=== PATIENT | male | born 1995 | race Caucasian/White ===

== ENCOUNTER 2017-03-24 07:45 | Observation (INO) | payer SELFPAY ==
[~2017-03-24] VITALS: Ht 167.6 cm; Wt 71.2 kg
[2017-03-24 07:57] VITALS: BP 157/103; PULSE 91; RESP 18; TEMP 97.9; O2SAT 97
[2017-03-24 08:16] VITALS: RESP 20; O2SAT 98
[2017-03-24] MEDS ORDERED: PROM25TA5 PO (08:21)
[2017-03-24] MEDS ORDERED: CINA30 PO (08:21)
[2017-03-24] MEDS ORDERED: [UNRECOGNIZED DRUG - CODE] PO (08:21)
[2017-03-24] MEDS ORDERED: SEVEL800 PO (08:21)
[2017-03-24] MEDS ORDERED: ALPR2TAB3 PO (08:21)
[2017-03-24 08:41] LABS: AUTOMATED NEUTROPHIL # 5.2 TH/MM3 (1.8-7.7); BASOPHIL % 0.4 % (0.0-2.0); EOSINOPHIL # 0.1 TH/MM3 (0-0.4); EOSINOPHIL % 1.8 % (0.0-4.0); HEMATOCRIT 29.1 % (39.0-51.0); LYMPH % 20.6 % (9.0-44.0); LYMPHOCYTE # 1.5 TH/MM3 (1.0-4.8); MEAN CELL VOLUME 92.9 FL (80.0-100.0); MEAN CORPUSCULAR HEMOGLOBIN 30.5 PG (27.0-34.0); MEAN CORPUSCULAR HGB CONC 32.8 % (32.0-36.0); MONO % 7.7 % (0.0-8.0); NEUT % 69.5 % (16.0-70.0); PLATELET COUNT 97 TH/MM3 (150-450); RED BLOOD COUNT 3.13 MIL/MM3 (4.50-5.90); RED CELL DISTRIBUTION WIDTH 14.3 % (11.6-17.2); WHITE BLOOD COUNT 7.4 TH/MM3 (4.0-11.0)
[2017-03-24 08:54] LABS: BICARBONATE 28.1 MEQ/L (21.0-32.0); POTASSIUM 5.7 MEQ/L (3.5-5.1)
--- NOTE | 2017-03-24 08:59 | RADRPT ---
EXAM DATE/TIME: 03/24/2017 08:09 [facility] COMPARISON: No previous studies available for comparison. INDICATIONS : Shortness of breath. MEDICAL HISTORY : Hypertension. SURGICAL HISTORY : None. ENCOUNTER: Initial ACUITY: 2 days PAIN SCORE: 0/10 LOCATION: Bilateral chest FINDINGS: Single AP view of the chest. The lungs are clear. Cardiomediastinal silhouette within normal limits. No evidence of pleural effusion or pneumothorax. CONCLUSION: No acute cardiopulmonary disease identified. Michael Weeks MD on March 24, 2017 at 8:57 Board Certified Radiologist. This report was verified electronically.
--- NOTE | 2017-03-24 09:22 | PD ---
HPI Chief Complaint: Medical Clearance Time Seen by Provider: 08:05 Travel History International Travel<30 days: No Contact w/Intl Traveler<30days: No Traveled to known affect area: No History of Present Illness HPI 22-year-old male with history of Alport syndrome here with complaint of needing dialysis. Patient has history of end-stage renal disease related to his Alport syndrome, dialyzes Sunday. He last dialyzed on Sunday, 4 days ago. Missed dialysis yesterday as he was here vacationing in [place] from [place]. He called his dialysis center, [facility] where he sees a Dr. Christina Nation, and they were going to get him in for hemodialysis today, but patient missed the bus to get home to [place]. Patient complains of generalized bodyaches and is concerned about fluid overload. He does not have any shortness of breath at this time. PFSH Past Medical History Hx Anticoagulant Therapy: No Anxiety: Yes Cardiovascular Problems: Yes (HTN) Chemotherapy: No Cerebrovascular Accident: No Diabetes: No Dialysis: Yes (M/W/F) Diminished Hearing: Yes (bilat swinomish) Genitourinary: Yes (GENETIC KIDNEY DISEASE) Hypertension: Yes Medical other: Yes (HEART STOPPED ON OR TABLE, HAD TO BE RESUCITATED) Respiratory: No Seizures: Yes Past Surgical History Other Surgery: Yes (LT ARM AV FISTULA) Social History Alcohol Use: No Tobacco Use: Yes (2-3 cigarettes per day) Substance Use: No Allergies-Medications (Allergen,Severity, Reaction): Coded Allergies: Klonopin (Verified Allergy, Intermediate, Itching, 03/24/17) Sertraline (Verified Allergy, Intermediate, Itching, 03/24/17) Valium (Verified Allergy, Intermediate, Itching, 03/24/17) Uncoded Allergies: ANTIANXIETY (Allergy, Intermediate, Itching, 03/24/17) ANTIDEPRESSANTS (Allergy, Intermediate, Itching, 03/24/17) Reported Meds & Prescriptions Reported Meds & Active Scripts Active Reported Restoril (Temazepam) 22.5 Mg Cap 22.5 Mg PO HS PRN Phenergan (Promethazine HCl) 25 Mg Tab 25 Mg PO Q6H PRN Sensipar (Cinacalcet) 30 Mg Tab 30 Mg PO DAILY Renvela (Sevelamer Carbonate) 800 Mg Tab 2,400 Mg PO TID Alprazolam 2 Mg Tab 2 Mg PO Q8H PRN Review of Systems Except as stated in HPI: all other systems reviewed are Neg Physical Exam Narrative GENERAL: Well-appearing male in no acute distress SKIN: Focused skin assessment warm/dry. HEAD: Normocephalic. EYES: No scleral icterus. No injection or drainage. ENT: Mucous membranes pink and moist. NECK: Supple CARDIOVASCULAR: Regular rate and rhythm. No murmur appreciated. RESPIRATORY: No accessory muscle use. Decreased in bilateral bases. GASTROINTESTINAL: Abdomen soft, non-tender, nondistended. MUSCULOSKELETAL: No obvious deformities.left upper extremity AV fistula with palpable thrill. No edema. NEUROLOGICAL: Awake and alert. Motor grossly within normal limits. Normal speech. PSYCHIATRIC: Appropriate mood and affect; insight and judgment normal. Data Data Last Documented VS Vital Signs Date Time Temp Pulse Resp B/P Pulse Ox O2 Delivery O2 Flow Rate FiO2 03/24/17 10:38 73 20 166/94 96 Nasal Cannula 2 03/24/17 07:57 97.9 Orders Complete Blood Count With Diff (03/24/17 08:05) Basic Metabolic Panel (Bmp) (03/24/17 08:05) Iv Access Insert/Monitor (03/24/17 08:05) Ecg Monitoring (03/24/17 08:05) Oximetry (03/24/17 08:05) Chest, Single Ap (03/24/17 08:05) Labs Laboratory Tests Test 03/24/17 08:25 White Blood Count 7.4 TH/MM3 Red Blood Count 3.13 MIL/MM3 Hemoglobin 9.6 GM/DL Hematocrit 29.1 % Mean Corpuscular Volume 92.9 FL Mean Corpuscular Hemoglobin 30.5 PG Mean Corpuscular Hemoglobin 32.8 % Concent Red Cell Distribution Width 14.3 % Platelet Count 97 TH/MM3 Mean Platelet Volume 10.3 FL Neutrophils (%) (Auto) 69.5 % Lymphocytes (%) (Auto) 20.6 % Monocytes (%) (Auto) 7.7 % Eosinophils (%) (Auto) 1.8 % Basophils (%) (Auto) 0.4 % Neutrophils # (Auto) 5.2 TH/MM3 Lymphocytes # (Auto) 1.5 TH/MM3 Monocytes # (Auto) 0.6 TH/MM3 Eosinophils # (Auto) 0.1 TH/MM3 Basophils # (Auto) 0.0 TH/MM3 CBC Comment AUTO DIFF Differential Comment AUTO DIFF CONFIRMED Platelet Estimate LOW Platelet Morphology Comment NORMAL Sodium Level 144 MEQ/L Potassium Level 5.7 MEQ/L Chloride Level 101 MEQ/L Carbon Dioxide Level 28.1 MEQ/L Anion Gap 15 MEQ/L Blood Urea Nitrogen 63 MG/DL Creatinine 14.48 MG/DL Estimat Glomerular Filtration 4 ML/MIN Rate Random Glucose 108 MG/DL Calcium Level 8.7 MG/DL [facility] Medical Decision Making Medical Screen Exam Complete: Yes Emergency Medical Condition: Yes Medical Record Reviewed: Yes Differential Diagnosis 22-year-old male with history of Alport syndrome, ESRD on HD Sunday/Sunday/ Sunday, last dialyzed 4 days ago here with complaint of body aches and concern for fluid overload. Differential includes noncompliant/nonadherence to dialysis regimen, volume overload, electrolyte abnormality, uremia, hyperkalemia. Narrative Course Patient placed on monitor, IV established and blood obtained. Chest x-ray obtained that by my read is unremarkable. CBC, BMP notable for hemoglobin 9.6. Potassium 5.7, BUN 63, creatinine 14.48. I suspect this is baseline given his renal dysfunction. I spoke with Dr. Garcia, who is on-call for his cook vegetable Dr. Nation, and an attempt to get him in a chair at his hemodialysis clinic this afternoon. Unfortunately they were unable to do so. I spoke with our cook vegetable, Dr. Lechuga, who will dialyze patient if he is admitted. Patient is agreeable to be admitted Diagnosis Primary Impression: Hyperkalemia Additional Impression: ESRD (end stage renal disease) Admitting Information Admitting Physician Requests: Observation Shila Hope MD March 24, 2017 09:22
[2017-03-24 09:24] LABS: HEMO FLAGS AUTO DIFF
[2017-03-24 09:26] LABS: PLATELET ESTIMATE SMEAR LOW (NORMAL); PLATELET MORPHOLOGY NORMAL (NORMAL); SCAN/DIFF AUTO DIFF CONFIRMED
[2017-03-24 10:38] VITALS: BP 166/94; PULSE 73; RESP 20; O2SAT 96
[2017-03-24] MEDS ORDERED: SODIUM CHLOR 0.9% 1000 ML INJ 1,000 ML IV PRN ×2 (12:14)
[2017-03-24] MEDS ORDERED: HEPARIN SODIUM - IV 10,000 UNITS/10 ML VIAL PRN (12:15)
[2017-03-24] MEDS ORDERED: HEPARIN SODIUM - IV 10,000 UNITS/10 ML VIAL IVF PRN (12:15)
[2017-03-24] MEDS ORDERED: PROMETHAZINE HCL 25 MG TAB PO PRN (12:15)
[2017-03-24] MEDS ORDERED: diphenhydrAMINE HCL 25 MG CAP PO PRN (12:15)
[2017-03-24] MEDS ORDERED: EPOETIN ALFA 10,000 UNITS/ML VIAL IV PRN (12:15)
[2017-03-24] MEDS ORDERED: ALBUMIN HUMAN 25% 25 GM/100 ML BAGP IV PRN (12:15)
[2017-03-24] MEDS ORDERED: cloNIDine HCL 0.1 MG TAB PO PRN (12:15)
[2017-03-24] MEDS ORDERED: TEMAZEPAM 7.5 MG CAP PO PRN (12:15)
[2017-03-24] MEDS ORDERED: GELATIN 12 MM/7 MM FOAM TOP PRN (12:15)
[2017-03-24] MEDS ORDERED: GENTAMICIN SULFATE (DIALYSIS USE ONLY) 20 MG/2 ML VIAL IV PRN (12:15)
[2017-03-24] MEDS ORDERED: MANNITOL 12.5 GM/50 ML VIAL IV PRN (12:15)
[2017-03-24] MEDS ORDERED: ONDANSETRON HCL 4 MG/2 ML VIAL IV PRN (12:15)
[2017-03-24] MEDS ORDERED: NALOXONE HCL 0.4 MG/ML AMP IV PRN (12:15)
[2017-03-24] MEDS ORDERED: SODIUM CHLORIDE 0.9% FLUSH 10 ML FLUSH IV FLUSH PRN ×2 (12:15)
[2017-03-24] MEDS ORDERED: NITROGLYCERIN 0.4 MG SL 25 TABS/BTL SL PRN (12:15)
--- NOTE | 2017-03-24 12:15 | HHI.HP ---
HPI Service Family Medicine Primary Care Physician No Primary Care Physician Admission Diagnosis hyperkalemia, ESRD Diagnoses: International Travel<30 Days: No Contact w/Intl Traveler<30days: No Known Affected Area: No History of Present Illness Kilo Bryan is a pleasant 22 year old man who unfortunately has ESRD due to Alport syndrome who was brought to the ED by his friend with complaints stating he feels as if there is fluid in his lungs. Patient lives in [place] with his step-father and grandfather and receives dialysis MWF at [facility]. His recreation officer is Dr. Nation in [place]. Patient is anuric; he has been receiving dialysis since June of 2014. Kilo states that he last received dialysis this past Sunday but was unable to get dialysis on Sunday as he was here in [facility] on a trip and was unable to get back up to [place]. He states on Sunday he began to feel slightly short of breath and complains of chest pain that he describes as whole chest and worse with inspiration. Pain is nonradiating. He also has a concern of a clot forming in his left arm fistula site and reports he has had four previous clots in this site in the past. (Benito Skaggs MD R1) Review of Systems Constitutional: DENIES: Fever, Change in appetite Cardiovascular: COMPLAINS OF: Chest pain, DENIES: Lower Extremity Edema Gastrointestinal: DENIES: Constipation, Diarrhea, Nausea, Vomiting Integumentary: DENIES: Rash Neurologic: DENIES: Headache, Localized weakness (Benito Skaggs MD R1) Past Family Social History Past Medical History HTN Anxiety PTSD from unspecified issues Past Surgical History Fistula left upper extremity (Benito Skaggs MD R1) Allergies: Coded Allergies: Klonopin (Verified Allergy, Intermediate, Itching, 03/24/17) Sertraline (Verified Allergy, Intermediate, Itching, 03/24/17) Valium (Verified Allergy, Intermediate, Itching, 03/24/17) Uncoded Allergies: ANTIANXIETY (Allergy, Intermediate, Itching, 03/24/17) ANTIDEPRESSANTS (Allergy, Intermediate, Itching, 03/24/17) Family History Patient is unaware of mother and father FH Social History Lives in [place] with step-father and grandfather Plans to move to [place] for work Admits to cigarette smoking 1-2 cigs daily since 16 years of age Denies etoh intake Denies illicit drug use (Benito Skaggs MD R1) Physical Exam Vital Signs Vital Signs Date Time Temp Pulse Resp B/P Pulse Ox O2 Delivery O2 Flow Rate FiO2 03/24/17 10:38 73 20 166/94 96 Nasal Cannula 2 03/24/17 08:16 20 98 Nasal Cannula 2 03/24/17 07:57 97.9 91 18 157/103 97 Physical Exam GENERAL: NAD, resting comfortably in bed NEURO: AOx3. Normal speech. processing associate grossly intact. SKIN: Warm and dry. No rashes or erythema. HEAD: Normocephalic. Atraumatic. EYES: PERRL. EOMI. No scleral icterus. No injection or drainage. ENT: No nasal drainage. Moist mucous membranes. No oral ulcers or lesions. NECK: Supple, trachea midline. No JVD. CARDIOVASCULAR: Regular rate and rhythm without murmurs, rubs, or gallops. Peripheral pulses 2+. Capillary refill < 2 seconds. Thrill auscultated in fistula of left upper extremity. RESPIRATORY: Breath sounds clear to auscultation and equal bilaterally, without wheezes, rales, or rhonchi. No accessory muscle use. GASTROINTESTINAL: Abdomen is soft, moderate tenderness in LUQ, nondistended, normal BS. No organomegaly or masses. No rebound tenderness. No guarding. MUSCULOSKELETAL: No edema, cyanosis, or clubbing. Normal range of motion. BACK: Nontender without obvious deformity. Laboratory Laboratory Tests Test 03/24/17 08:25 White Blood Count 7.4 Red Blood Count 3.13 Hemoglobin 9.6 Hematocrit 29.1 Mean Corpuscular Volume 92.9 Mean Corpuscular Hemoglobin 30.5 Mean Corpuscular Hemoglobin 32.8 Concent Red Cell Distribution Width 14.3 Platelet Count 97 Mean Platelet Volume 10.3 Neutrophils (%) (Auto) 69.5 Lymphocytes (%) (Auto) 20.6 Monocytes (%) (Auto) 7.7 Eosinophils (%) (Auto) 1.8 Basophils (%) (Auto) 0.4 Neutrophils # (Auto) 5.2 Lymphocytes # (Auto) 1.5 Monocytes # (Auto) 0.6 Eosinophils # (Auto) 0.1 Basophils # (Auto) 0.0 CBC Comment AUTO DIFF Differential Comment AUTO DIFF CONFIRMED Platelet Estimate LOW Platelet Morphology Comment NORMAL Sodium Level 144 Potassium Level 5.7 Chloride Level 101 Carbon Dioxide Level 28.1 Anion Gap 15 Blood Urea Nitrogen 63 Creatinine 14.48 Estimat Glomerular Filtration 4 Rate Random Glucose 108 Calcium Level 8.7 (Benito Skaggs MD R1) Result Diagram: 03/24/1782403/24/17824 Assessment and Plan Assessment and Plan 22 year old man with ESRD due to Alport syndrome presents to the ED needing dialysis following a missed dialysis session yesterday 03/23. Nephrology has been consulted for management with ESRD and dialysis. Code Status Full code Discussed Condition With Dr. Kel Mclean (Benito Skaggs MD R1) Attending Attestation Patient seen and examined, discussed with resident team. I agree with assessment and management as documented and discussed with me. Pt seen in dialysis. At the time of my exam/interview, he has had 2.2L removed ( planned for 2.5L per clinical documentation spec) Pt reports that abdominal pain has resolved, SOB and chest pain have also improved. He reports pain and fullness in his arm at site of AV fistula; this is a similar sensation to other blood clots in his fistula in the past. Additional diagnosis: hyperkalemia: Anticipate improvement with dialysis. Secondary to ESRD and missed dialysis session. No peaked T waves on EKG (Jennifer Kennedy MD) Problem List: (1) ESRD (end stage renal disease) Status: Chronic Plan: - Patient has been receiving dialysis since 06/2014 - Receives dialysis MWF - Nephrology consult for dialysis - Continue home sensipar and renvela (2) Arteriovenous fistula for hemodialysis in place, primary Status: Chronic Plan: - Patient had concerns about a possible thrombus formation - Does report a history of thrombi forming in the past multiple times - Fistula with audible thrill on exam - No signs of edema or erythema - Will obtain an US for evaluation of any possible thrombus (3) Abdominal pain Status: Acute Plan: - Patient did seem to have LUQ abdominal pain on palpation - Afebrile, no leukocytosis - Will obtain a lipase and evaluate further if abdominal pain persists following HD or lipase is elevated (4) Nutrition, metabolism, and development symptoms Status: Chronic Plan: Anxiety: continue home alprazolam Nutrition: Renal diet Electrolytes: monitor post dialysis, nephrology consulted Fluids: Not indicated (Benito Skaggs MD R1) Physician Certification 2 Midnight Certification Type: Admission for Inpatient Services Order for Inpatient Services The services are ordered in accordance with Medicare regulations or non- Medicare payer requirements, as applicable. In the case of services not specified as inpatient-only, they are appropriately provided as inpatient services in accordance with the 2-midnight benchmark. Estimated LOS (days): 1 days is the estimated time the patient will need to remain in the hospital, assuming treatment plan goals are met and no additional complications. Post-Hospital Plan: Home (Benito Skaggs MD R1) Problem Qualifiers (1) Abdominal pain: Qualified Code: R10.12 - Left upper quadrant pain Benito Skaggs MD R1 March 24, 2017 12:15 Jennifer Kennedy MD March 24, 2017 20:13
[2017-03-24] MEDS: SEVELAMER CARBONATE 800 MG TAB PO SCH ×2 (13:00→19:02)
[2017-03-24] MEDS: SODIUM CHLORIDE 0.9% FLUSH 10 ML FLUSH IV FLUSH SCH ×2 (13:00→21:00)
[2017-03-24 15:02] LABS: INDIRECT BILIRUBIN 0.2 MG/DL (0.0-0.8); TOTAL BILIRUBIN ADULT 0.3 MG/DL (0.2-1.0)
--- NOTE | 2017-03-24 16:04 | MB ---
cc: GABI WYATT MD DATE OF CONSULTATION: 03/24/2017. REASON FOR CONSULTATION: End-stage renal disease on hemodialysis for management. HISTORY OF PRESENT ILLNESS: This is 22-year-old male who has been on hemodialysis for the last three to four years. He has been getting dialysis. He came to the hospital because he missed his dialysis yesterday. I was called to see the patient for the management of dialysis. The patient has been on dialysis for three to four years. The reason for his renal failure was Alport disease. This disease runs in the family. The patient has been on hemodialysis MWF. He was visiting here. His friend was supposed to go back but he could not make it yesterday and today he was trying to call his dialysis unit and they could not accept him for dialysis for some reason so he came to the emergency room. He had mild shortness of breath and he was found to have slight increase in the potassium. The patient denies any chest pain at present but he had some chest pain at home with deep inspiration. PAST MEDICAL HISTORY: 1. Hypertension. 2. Anxiety. 3. History of post-traumatic stress disorder. 4. End-stage renal disease on hemodialysis. 5. Alport disease with some decreased hearing. PAST SURGICAL HISTORY: Left arm AV fistula surgery. REVIEW OF SYSTEMS: Denies any headache, dizziness or blurring of vision. He does not have any fever. He has mild shortness of breath. He had some chest pain which was retrosternal and increased with inspiration. It is better now. There is no nausea or vomiting. No abdominal pain. No diarrhea. SOCIAL HISTORY The patient has a history of smoking and is trying to cut down and now he is down to one to two cigarettes a day. There is no history of heavy alcoholism. FAMILY HISTORY: Family history is positive for renal disease and Alport syndrome. Two of his brothers have it and his mother also has Alport disease. ALLERGIES: HE IS ALLERGIC TO: 1. VALIUM. 2. KLONOPIN. 3. SERTRALINE. MEDICATIONS: Currently he is on: 1. Sensipar 30 milligrams once a day. 2. Renvela 2.4 grams three times a day. 3. Restoril as needed. 4. Phenergan as needed. PHYSICAL EXAMINATION: GENERAL: On examination, the patient is awake and alert and I saw him while he was on hemodialysis. VITAL SIGNS: His blood pressure was 166/94, temperature 97.9, oxygen saturation on two liters nasal cannula was 96%. HEAD, EYES, EARS, NOSE, THROAT: The pupils are equal and reacting to light. Nonicteric sclerae. Conjunctivae are normal. NECK: The neck is supple. JVD is not elevated. LUNGS: The patient has bilateral ___ air entry with occasional wheezing. HEART: S1 and S2 regular rhythm. ABDOMEN: Abdomen soft and lax. There is no tenderness. Bowel sounds positive. EXTREMITIES: There is no pedal edema. Left arm AV fistula with good bruit. INVESTIGATIONS: WBC count is 7.4, hemoglobin 9.6, platelet count 97,000. Sodium 144, potassium 5.7, chloride 101, bicarb 28.1, BUN 63 and Creatinine is 14.4, glucose 108, calcium 8.7. AST and ALT normal. Total protein is 5.7. Albumin is 3.4. Lipase is 120. IMAGING STUDIES: The patient had a chest x-ray done which showed that he has clear lung brasher. ASSESSMENT AND PLAN: 1. End-stage renal disease. 2. Hyperkalemia. 3. Hypertension. 4. Mild anemia. The patient has been on hemodialysis and he missed his treatment today. He is now on hemodialysis and trying to remove 3 liters. Blood pressure is on the higher side so he should tolerate this fluid removal. The potassium should improve with dialysis. Post dialysis, if he remains stable, possibly tomorrow he can be discharged. The patient has been admitted for 23-hour observation. The patient is planning to move [facility] in the next month or so. He asked me and I told him that he will have to make arrangements for dialysis depending on the place he is going to stay. He told me that he will contact me and let me know about it. Thank you for the consultation and I will follow the patient while he is in the hospital. MD STEVEN Posadas/VIMAL /3:14 PM /3:43 PM JOSE
[2017-03-24] MEDS: SODIUM CHLOR 0.9% 1000 ML INJ 1,000 ML IV PRN ×3 (16:09→23:50)
--- NOTE | 2017-03-24 18:46 | HHI.DCPOC ---
Discharge Care Plan Diagnosis: (1) ESRD (end stage renal disease) Goals to Promote Your Health * To prevent worsening of your condition and complications, follow up with your kidney doctor Dr. Nation Directions to Meet Your Goals Take your medications as prescribed Follow your dietary instruction Follow activity as directed Keep your appointments as scheduled Take your immunizations and boosters as scheduled If your symptoms worsen call your PCP, if no PCP go to Urgent Care Center or Emergency Room Smoking is Dangerous to Your Health. Avoid second hand smoke Call the 24-hour hour crisis hotline for domestic abuse at Benito Skaggs MD R1 March 24, 2017 18:46
[2017-03-24] MEDS: ACETAMINOPHEN 325 MG TAB PO PRN (20:18)
[2017-03-24 20:52] VITALS: BP 142/89; PULSE 81; RESP 18; TEMP 98.7; O2SAT 97
[2017-03-24] MEDS: ALPRAZolam 1 MG TAB PO PRN (20:58)
--- NOTE | 2017-03-24 23:54 | RADRPT ---
EXAM DATE/TIME: 03/24/2017 22:50 [facility] COMPARISON: No previous studies available for comparison. INDICATIONS : Left arm swelling. MEDICAL HISTORY : Bilateral hearing loss. HTN. Genetic kidney disease. Anxiety. SURGICAL HISTORY : Left arm AV fistula. Dialysis. ENCOUNTER: Initial ACUITY: 1 day PAIN SCORE: 5/10 LOCATION: Left arm. FINDINGS: There is spontaneous flow documented in the brachial, basilic, cephalic, axillary, and subclavian vei ns. The vessels are compressible and augmentation response is documented. No filling defects are se en. The flow is phasic with respiration. Direction of flow in the jugular vein is caudal. There is a dialysis AV fistula in the basilic vein to the brachial artery with a maximal dilation of 3 cm x 1 .9 cm. There is a stent in the proximal basilic vein. CONCLUSION: 1. Negative for deep venous thrombosis. AV fistula patent from basilic vein to the distal brachial ar luanne. Heath Strange MD on March 24, 2017 at 23:51 Board Certified Radiologist. This report was verified electronically.
[2017-03-25 04:42] VITALS: BP 161/96; PULSE 79; RESP 18; TEMP 98.7; O2SAT 97
--- NOTE | 2017-03-25 07:56 | HHI.FPPN ---
Subjective Remarks Patient seen and examined this morning. He is concerned about his blood pressure being elevated. Says he used to take medication but that blood pressure "bottomed out" during dialysis and he then "felt like he didn't need it". Now thinks he may need medication again. He denies having low blood pressures over the last year during dialysis. He feels "a lot better" compared to yesterday, but still has a headache. He asks about his fistula and was informed US did not show a blood clot -He denies Shortness of breath, denies trouble breathing. Denies chest pain, denies abdominal pain. -Patient has a friend who could give him a ride back to [place] today. ( Maureen Lambert MD) Objective Vitals Vital Signs Date Time Temp Pulse Resp B/P Pulse Ox O2 Delivery O2 Flow Rate FiO2 03/25/17 04:42 98.7 79 18 161/96 97 03/24/17 23:50 18 03/24/17 20:52 98.7 81 18 142/89 97 03/24/17 14:02 Nasal Cannula 2.00 03/24/17 10:38 73 20 166/94 96 Nasal Cannula 2 03/24/17 08:16 20 98 Nasal Cannula 2 03/24/17 07:57 97.9 91 18 157/103 97 I/O 03/24/17 03/24/17 03/24/17 03/25/17 03/25/17 03/25/17 07:00 15:00 23:00 07:00 15:00 23:00 Output Total 2500 ml Balance -2500 ml Output Hemodialysis 2500 ml (Maureen Lambert MD) Result Diagram: 03/24/1725 03/24/1725 Imaging Last Impressions Chest X-Ray 03/24/17804 Signed Impressions: Service Date/Time: Friday, March 24, 2017 08:09 - CONCLUSION: No acute cardiopulmonary disease identified. Michael Weeks MD Upper Extremity Ultrasound 03/24/17 0000 Signed Impressions: Service Date/Time: Friday, March 24, 2017 22:50 - CONCLUSION: 1. Negative for deep venous thrombosis. AV fistula patent from basilic vein to the distal brachial artery. Heath Strange MD Objective Remarks GENERAL: NAD, resting comfortably in bed. SKIN: Warm and dry. No rashes or erythema. HEAD: Normocephalic. Atraumatic. EYES: PERRL. EOMI. No scleral icterus. No injection or drainage. ENT: No nasal drainage. Moist mucous membranes. No oral ulcers or lesions. NECK: Supple, trachea midline. No JVD. CARDIOVASCULAR: Regular rate and rhythm without murmurs, rubs, or gallops. RESPIRATORY: Breath sounds clear to auscultation and equal bilaterally, without wheezes, rales, or rhonchi. No accessory muscle use. GASTROINTESTINAL: Abdomen is soft, moderate tenderness in epigastric region, nondistended, normal BS. No organomegaly or masses. No rebound tenderness. No guarding. MUSCULOSKELETAL: No edema, cyanosis, or clubbing. BACK: No obvious deformity NEURO: Awake, alert. Normal speech. 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 Nephrology was consulted for management with ESRD and dialysis. Patient is now s/p dialysis on 03/24, now clinically much improvement. Discharge Planning Discharge home today Dialysis as outpatient tomorrow, BMP ordered for tomorrow SDW Dr. Kennedy, Dr. Kel Jordan, Dr. Aldana, Pamela Mclean, MS4 (Maureen Lambert MD) Attending Attestation Patient seen, examined, and discussed with resident team. I agree with assessment and management as documented and discussed with me. Pt reports headache and concern over elevated blood pressures. He has a h/o HTN. Start amlodipine 5mg daily. Discharge home today. (Jennifer Kennedy MD) Problem List: (1) ESRD (end stage renal disease) Status: Chronic Plan: Patient has been receiving dialysis since 06/2014. Receives dialysis MWF - Nephrology consulted, had dialysis yesterday as inpatient with improvement. Creatinine 14.48->10.56. - K+ still elevated (5.7->5.6). Kaylexalate given 30g x1 today by nephrology. Per Nephrology, okay for discharge, Need to decrease K in the diet. - Will be getting Dialysis as outpatient tomorrow. - BMP tomorrow as outpt - Continue home sensipar and renvela (2) Arteriovenous fistula for hemodialysis in place, primary Status: Chronic Plan: - US negative for thrombus. No signs of edema or erythema - Fistula with audible thrill on exam (3) Abdominal pain Status: Acute Plan: - Yesterday LUQ abdominal pain on palpation, today epigastric pain - Afebrile, no leukocytosis - Lipase normal (4) Hypertension Status: Chronic Plan: BPs elevated during entire hospital stay ranging 142/89 to 166/94. No low BPs reported after dialysis -Start amlodipine 5mg daily, continue on discharge (5) Nutrition, metabolism, and development symptoms Status: Chronic Plan: Anxiety: continue home alprazolam Nutrition: Renal diet Electrolytes: K+ still elevated as above, given Kaylexalate by Nephrology this am. BMP for tomorrow ordered as outpt Fluids: Not indicated (Maureen Lambert MD) Problem Qualifiers (1) Abdominal pain: Qualified Code: R10.12 - Left upper quadrant pain (2) Hypertension: Qualified Code: I10 - Essential hypertension Maureen Lambert MD March 25, 2017 07:56 Jennifer Kennedy MD March 25, 2017 20:27
[2017-03-25] MEDS ORDERED: AMLO5TAB2 PO (08:02)
[2017-03-25 08:08] VITALS: BP 135/94; PULSE 82; RESP 17; TEMP 98.2; O2SAT 96
[2017-03-25] MEDS: SODIUM CHLORIDE 0.9% FLUSH 10 ML FLUSH IV FLUSH SCH (08:37)
[2017-03-25] MEDS: ACETAMINOPHEN 325 MG TAB PO PRN (08:37)
[2017-03-25] MEDS: SEVELAMER CARBONATE 800 MG TAB PO SCH (08:37)
[2017-03-25] MEDS ORDERED: CINACALCET HYDROCHLORIDE 30 MG TAB PO SCH (09:00)
[2017-03-25] MEDS ORDERED: amLODIPine BESYLATE 5 MG TAB PO ONE (09:00)
[2017-03-25 10:13] LABS: BICARBONATE 31.5 MEQ/L (21.0-32.0); POTASSIUM 5.6 MEQ/L (3.5-5.1)
[2017-03-25] MEDS ORDERED: SODIUM POLYSTYRENE SULFONATE SUSP 15 GM/60 ML CUP PO ONE (10:45)
--- NOTE | 2017-03-25 10:51 | HHI.NPPN ---
Subjective General Problems: Hypertension Renal Failure: End Stage Renal Disease History of Present Illness 22-year-old male who has been on hemodialysis for the last three to four years. He has been getting dialysis. He came to the hospital because he missed his dialysis yesterday. I was called to see the patient for the management of dialysis. The patient has been on dialysis for three to four years. The reason for his renal failure was Alport disease. Additional Remarks Patient is alert, doing better, no SOB. Objective Data Data 03/24/17 03/25/17 19:00 07:00 Output Total 2500 ml Balance -2500 ml Output Hemodialysis 2500 ml Vital Signs Date Time Temp Pulse Resp B/P Pulse Ox O2 Delivery O2 Flow Rate FiO2 03/25/17 08:08 98.2 82 17 135/94 96 03/25/17 04:42 98.7 79 18 161/96 97 03/24/17 23:50 18 03/24/17 20:52 98.7 81 18 142/89 97 03/24/17 14:02 Nasal Cannula 2.00 -: 03/24/17 0825 03/25/17 0910 Physical Exam General Appearance: No Acute Distress, Comfortable Eyes Eye Exam: Pupils Equal Neck Neck Exam: Neck Supple Pulmonary Resp Exam: Clear Bilaterally, Breath Sounds Equal, No Distress, Decreased Bases Cardiology CV Exam: Regular, Normal Sinus Rhythm Gastrointestinal/Abdomen GI Exam: Soft, Non-Tender, Bowel Sounds Present Extremeties Extremities Exam: Trace Edema Neurologic Neuro Exam: Alert, Awake, Oriented Psychiatric Psych Exam: Appropriate Responses Assessment/Plan Assessment Summary: Hypertension, End Stage Renal Disease Electrolyte Assessment: Hyperkalemia Problem List: (1) Hyperkalemia (2) Hypertension (3) ESRD (end stage renal disease) Plan Patient has HD done yesterday. Tolerated well. Creatinine is better. K is still 5.6, Need to decrease K in the diet. BP is stable, Kayexalate on dose. Possible discharge. To continue HD tomorrow. Problem Qualifiers (1) Hypertension: Qualified Code: I10 - Essential hypertension Bety Lechuga MD March 25, 2017 10:51
[2017-03-25] MEDS: ALPRAZolam 1 MG TAB PO PRN (11:52)
--- NOTE | 2017-03-25 16:46 | EKG ---
Date Performed: 03/24/2017 Time Performed: 12:35:59 PTAGE: 22 years EKG: Sinus rhythm NORMAL ECG NO PREVIOUS TRACING DOCTOR: Amy Lutz Interpretating Date/Time 03/25/2017 16:42:07
== END 2017-03-25 12:47 | disposition home or self-care (01) ==
LOC: NEPC 07:45 → NEDA 11:48 → NEPGCP 17:10
PROVIDERS: ADMIT Family Medicine; ATTEND Family Medicine
DX: I12.0 Hypertensive chronic kidney disease with stage 5 chronic kidney disease or end stage renal disease (principal); N18.6 End stage renal disease; R10.12 Left upper quadrant pain; D64.9 Anemia, unspecified; Q87.81 Alport syndrome; E87.5 Hyperkalemia; F43.10 Post-traumatic stress disorder, unspecified; F41.9 Anxiety disorder, unspecified; F17.210 Nicotine dependence, cigarettes, uncomplicated; Z88.8 Allergy status to other drugs, medicaments and biological substances; Z99.2 Dependence on renal dialysis
CPT/HCPCS: 71010; 80048; 80076; 83690; 85025; 90935; 93005; 93971; 96374; 99284; G0378; J7030; Q4081; G0257

== ENCOUNTER 2017-03-27 20:28 | Observation (INO) | payer MEDICARE ==
[~2017-03-27 20:28] MED LIST: ALPR2TAB3 PO; AMLO5TAB2 PO; CINA30 PO; PROM25TA5 PO; SEVEL800 PO; [UNRECOGNIZED DRUG - CODE] PO
[2017-03-27 20:32] VITALS: BP 148/98; PULSE 98; RESP 16; TEMP 99.2; O2SAT 99
--- NOTE | 2017-03-27 21:26 | PD ---
HPI . Dialysis Chief Complaint: Abnormal Results Time Seen by Provider: 20:48 Travel History International Travel<30 days: No Contact w/Intl Traveler<30days: No Traveled to known affect area: No History of Present Illness HPI Patient presents stating that he needs dialysis. He has kidney failure secondary to Alport Disease and has been on hemodialysis for the last 4 years or so. He has been living in [place]. He was seen here on 03/24 stating that he was on vacation here and missed dialysis. Tonight, he states that he moved here "technically today." He reports that he is homeless. He states that he feels like he has toxins building up in his body. He states that he aches all over, has a poor appetite, is nauseous and has a headache. PFSH Past Medical History Hx Anticoagulant Therapy: No Blood Disorders: No Anxiety: Yes Heart Rhythm Problems: No Cancer: No Cardiovascular Problems: Yes High Cholesterol: No Chemotherapy: No Chest Pain: No Congestive Heart Failure: No Cerebrovascular Accident: No Diabetes: No Dialysis: Yes (M/W/F) Diminished Hearing: Yes (bilat [place]) Endocrine: No Gastrointestinal Disorders: No Genitourinary: Yes Hypertension: Yes Immune Disorder: No Musculoskeletal: No Neurologic: No Psychiatric: No Reproductive: No Respiratory: No Seizures: Yes Past Surgical History Other Surgery: Yes (LT ARM AV FISTULA) Social History Alcohol Use: No Tobacco Use: Yes (2-3 cigarettes per day) Substance Use: No Allergies-Medications (Allergen,Severity, Reaction): Coded Allergies: Klonopin (Verified Allergy, Intermediate, Itching, 03/27/17) Sertraline (Verified Allergy, Intermediate, Itching, 03/27/17) Valium (Verified Allergy, Intermediate, Itching, 03/27/17) Uncoded Allergies: ANTIANXIETY (Allergy, Intermediate, Itching, 03/24/17) ANTIDEPRESSANTS (Allergy, Intermediate, Itching, 03/24/17) Reported Meds & Prescriptions Reported Meds & Active Scripts Active Amlodipine (Amlodipine Besylate) 5 Mg Tab 5 Mg PO DAILY Reported Restoril (Temazepam) 22.5 Mg Cap 22.5 Mg PO HS PRN Phenergan (Promethazine HCl) 25 Mg Tab 25 Mg PO Q6H PRN Sensipar (Cinacalcet) 30 Mg Tab 30 Mg PO DAILY Renvela (Sevelamer Carbonate) 800 Mg Tab 2,400 Mg PO TID Alprazolam 2 Mg Tab 2 Mg PO Q8H PRN Review of Systems Except as stated in HPI: all other systems reviewed are Neg General / Constitutional: No: Fever, Chills HENT: Positive: Headaches Gastrointestinal: Positive: Nausea, Loss of Appetite Musculoskeletal: Positive: Myalgias Physical Exam Narrative Vital Signs Date Time Temp Pulse Resp B/P Pulse Ox O2 Delivery O2 Flow Rate FiO2 03/27/17 21:00 Room Air 03/27/17 20:32 99.2 98 16 148/98 99 Room Air GENERAL: Chronically ill-appearing young man who does not appear to be in any acute distress. SKIN: Warm and dry. Uremic hue. HEAD: Atraumatic. Normocephalic. EYES: Pupils equal and round. Extraocular movements are intact. ENT: No nasal bleeding or discharge. Mucous membranes pink and moist. NECK: Trachea midline. Neck is supple. CARDIOVASCULAR: Regular rate and rhythm. Heart sounds are normal. RESPIRATORY: No accessory muscle use. Lungs sound clear. GASTROINTESTINAL: Abdomen soft, non-tender, nondistended. MUSCULOSKELETAL: No obvious deformities. No edema. NEUROLOGICAL: Awake and alert. No obvious cranial nerve deficits. Motor grossly within normal limits. Normal speech. PSYCHIATRIC: Appropriate mood and affect; insight and judgment normal. Data Data Last Documented VS Vital Signs Date Time Temp Pulse Resp B/P Pulse Ox O2 Delivery O2 Flow Rate FiO2 03/27/17 21:00 Room Air 03/27/17 20:32 99.2 98 16 148/98 99 Orders Chest, Pa & Lat (03/27/17 20:48) Basic Metabolic Panel (Bmp) (03/27/17 20:48) Cathode Maker / Telemetry IRMA.Q8H (03/27/17 20:48) ^ Saline Lock (03/27/17 20:48) Acetaminophen (Tylenol) (03/27/17 21:45) Admit Order (Ed Use Only) (03/27/17 22:16) Complete Blood Count With Diff (03/28/17 06:00) Basic Metabolic Panel (Bmp) (03/28/17 06:00) Place In Observation (03/27/17 22:16) Activity Oob Ad Arlette (03/27/17 22:16) Cathode Maker / Telemetry .CONTINUOUS (03/27/17 22:16) Diet Renal (03/28/17 Breakfast) Scd Bilateral/Knee High IRMA.QSHIFT (03/27/17 22:16) Consult Nephrology (03/27/17 ) Labs Laboratory Tests Test 03/27/17 21:00 Sodium Level 141 MEQ/L Potassium Level 5.5 MEQ/L Chloride Level 97 MEQ/L Carbon Dioxide Level 29.1 MEQ/L Anion Gap 15 MEQ/L Blood Urea Nitrogen 61 MG/DL Creatinine 18.27 MG/DL Estimat Glomerular Filtration 3 ML/MIN Rate Random Glucose 82 MG/DL Calcium Level 8.3 MG/DL MDM Medical Decision Making Medical Screen Exam Complete: Yes Emergency Medical Condition: Yes Medical Record Reviewed: Yes (patient was admitted here on 03/24 and underwent hemodialysis in the hospital. He was hyperkalemic at that time.) Differential Diagnosis Differential diagnosis includes hyperkalemia, fluid overload, uremia Narrative Course BMP Diagram 03/27/17 21:00 BMP Diagram 03/27/17 21:00 CXR>>No acute disease. The chest x-ray was independently viewed by me. The patient needs to be dialyzed but I do not believe that he needs to be dialyzed emergently. He was admitted to the resident service 2 days ago. I will see if they will admit him again tonight for dialysis tomorrow. Diagnosis Primary Impression: ESRD (end stage renal disease) Admitting Information Admitting Physician Requests: Observation Condition: Stable Aysha Sanchez MD March 27, 2017 21:26
[2017-03-27 21:39] LABS: BICARBONATE 29.1 MEQ/L (21.0-32.0); POTASSIUM 5.5 MEQ/L (3.5-5.1)
--- NOTE | 2017-03-27 21:39 | RADRPT ---
EXAM DATE/TIME: 03/27/2017 21:19 [facility] COMPARISON: No previous studies available for comparison. INDICATIONS : Chest pain. MEDICAL HISTORY : Hypertension. Smoker. Dialysis. SURGICAL HISTORY : None. ENCOUNTER: Initial ACUITY: 1 day PAIN SCORE: 6/10 LOCATION: Bilateral chest FINDINGS: PA and lateral views of the chest demonstrate the lungs to be symmetrically aerated without evidence of mass, infiltrate or effusion. The cardiomediastinal contours are unremarkable. Osseous structure s are intact. CONCLUSION: No acute disease. Lavon Sotomayor MD on March 27, 2017 at 21:38 Board Certified Radiologist. This report was verified electronically.
[2017-03-27] MEDS ORDERED: ACETAMINOPHEN 325 MG TAB PO ONE (21:45)
--- NOTE | 2017-03-27 22:20 | HHI.HP ---
HPI Service Family Medicine Primary Care Physician No Primary Care Physician Admission Diagnosis renal failure Diagnoses: Chief Complaint: needs dialysis International Travel<30 Days: No Contact w/Intl Traveler<30days: No Known Affected Area: No History of Present Illness 22 y/o male with Alport syndrome presents to ED for dialysis. He was just admitted and discharged on Sunday03/25/17. Since being discharged, he did not receive dialysis. He states that he feels toxins building up in his body. He endorses body aches over his entire body. Endorses cluster headache. Some nausea. Some shortness of breath. He normally receives dialysis MWF in [place] with Dr. Nation at [facility]. Pt has anuria. He lives in [place] with his step-father, however, was kicked out and states he is basically homeless. He is now living with a friend in [place] and will be living here permanently. Pt was seen by Dr. Lechuga at last admission and received dialysis. However, was scheduled to follow-up in [place] for further dialysis, but was unable to. Review of Systems Constitutional: DENIES: Fever, Chills, Dizziness Ears, nose, mouth, throat: COMPLAINS OF: Hearing loss, DENIES: Running Nose Respiratory: COMPLAINS OF: Shortness of breath, DENIES: Cough Cardiovascular: COMPLAINS OF: Chest pain, DENIES: Palpitations, Syncope, Lower Extremity Edema Gastrointestinal: COMPLAINS OF: Abdominal pain, Nausea, DENIES: Constipation, Diarrhea, Vomiting Musculoskeletal: DENIES: Back pain, Neck pain Integumentary: DENIES: Abnormal pigmentation, Rash Hematologic/lymphatic: DENIES: Bruising, Lymphadenopathy Neurologic: COMPLAINS OF: Headache, DENIES: Localized weakness Psychiatric: DENIES: Anxiety, Confusion Past Family Social History Past Medical History ESRD from Alport Syndrome HTN Anxiety/PTSD Past Surgical History Fistula LUE Reported Medications Reported Meds & Active Scripts Active Amlodipine (Amlodipine Besylate) 5 Mg Tab 5 Mg PO DAILY Reported Restoril (Temazepam) 22.5 Mg Cap 22.5 Mg PO HS PRN Phenergan (Promethazine HCl) 25 Mg Tab 25 Mg PO Q6H PRN Sensipar (Cinacalcet) 30 Mg Tab 30 Mg PO DAILY Renvela (Sevelamer Carbonate) 800 Mg Tab 2,400 Mg PO TID Alprazolam 2 Mg Tab 2 Mg PO Q8H PRN Allergies: Coded Allergies: Klonopin (Verified Allergy, Intermediate, Itching, 03/27/17) Sertraline (Verified Allergy, Intermediate, Itching, 03/27/17) Valium (Verified Allergy, Intermediate, Itching, 03/27/17) Uncoded Allergies: ANTIANXIETY (Allergy, Intermediate, Itching, 03/24/17) ANTIDEPRESSANTS (Allergy, Intermediate, Itching, 03/24/17) Active Ordered Medications Active Medications Acetaminophen (Tylenol) 650 mg ONCE ONCE PO Last administered on 03/27/17t 21: 55; Admin Dose 650 MG; Start 03/27/17 at 21:45; Stop 03/27/17 at 21:46; Status DC Family History Unknown maternal/paternal history Social History Lives in [place] with step-father and grandfather Plans to move to [facility] for work Admits to cigarette smoking 1-2 cigs daily since 16 years of age Denies etoh intake Denies illicit drug use Physical Exam Vital Signs Vital Signs Date Time Temp Pulse Resp B/P Pulse Ox O2 Delivery O2 Flow Rate FiO2 03/27/17 21:00 Room Air 03/27/17 20:32 99.2 98 16 148/98 99 Room Air Physical Exam GENERAL: This is a well-nourished, well-developed patient, NAD SKIN: No rashes, ecchymoses or lesions. Cool and dry. HEAD: Atraumatic. Normocephalic. EYES: Pupils equal round and reactive. Extraocular motions intact. No scleral icterus. No injection or drainage. ENT: Throat without erythema. MMM. NECK: Trachea midline. No JVD or lymphadenopathy. CARDIOVASCULAR: Regular rate and rhythm without murmurs, gallops, or rubs. Pulses intact. Palpable thrill in fistula of LUE RESPIRATORY: Clear to auscultation. Breath sounds equal bilaterally. No wheezes , rales, or rhonchi. GASTROINTESTINAL: Abdomen soft, non-tender, nondistended. No hepato-splenomegaly , or palpable masses. No guarding. MUSCULOSKELETAL: Extremities without clubbing, cyanosis, or edema. No joint tenderness, effusion, or edema noted. No calf tenderness. NEUROLOGICAL: Awake and alert. Motor and sensory grossly within normal limits. Normal speech. Laboratory Laboratory Tests Test 03/27/17 21:00 Sodium Level 141 Potassium Level 5.5 Chloride Level 97 Carbon Dioxide Level 29.1 Anion Gap 15 Blood Urea Nitrogen 61 Creatinine 18.27 Estimat Glomerular Filtration 3 Rate Random Glucose 82 Calcium Level 8.3 Result Diagram: 03/27/172099 Imaging Last Impressions Chest X-Ray 03/27/172047 Signed Impressions: Service Date/Time: Monday, March 27, 2017 21:19 - CONCLUSION: No acute disease. 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 Will admit for nephrology consultation and dialysis. Code Status Full Discussed Condition With Dr. Muse Problem List: (1) ESRD (end stage renal disease) Status: Chronic Plan: Hx of Alport Syndrome. Been on dialysis for 3-4 years. Normally receives dialysis MWF in [place], however is now moving to [place]. Will need outpatient dialysis set up on discharge. Saw Dr. Lechuga last hospitalization. -Consult nephrology, appreciate recs -Will go for dialysis tomorrow -Continue home sensipar and renvela (2) Hypertension Status: Chronic Plan: BP 157/103 on admission. Started on amlodipine last admission -Continue amlodipine 5mg daily -Clonidine PRN (3) Hyperkalemia Status: Acute Plan: K of 5.5 on admission. Level of 5.6 upon discharge two days ago. -EKG to evaluate for hyperkalemic changes -Continue to monitor -Await dialysis (4) Headache Status: Acute Plan: Pt endorses cluster headache. States he gets them off and on, especially associated with not getting dialysis -Administer supplemental oxygen -Tylenol PRN -Phenergan PRN (5) FEN Status: Acute Plan: Fluids: none Electrolytes: Hyperkalemia, monitor s/p dialysis Nutrition: Renal diet DVT ppx: SCDs Problem Qualifiers (1) Hypertension: Qualified Code: I15.1 - Hypertension secondary to other renal disorders (2) Headache: Qualified Code: G44.019 - Episodic cluster headache, not intractable Daniel Rosario MD R1 March 27, 2017 22:20
[2017-03-27 22:45] VITALS: BP 127/85; PULSE 72; RESP 18; O2SAT 99
[2017-03-27] MEDS ORDERED: cloNIDine HCL 0.1 MG TAB PO PRN (22:45)
[2017-03-27] MEDS ORDERED: PROMETHAZINE HCL 25 MG TAB PO PRN (23:15)
[2017-03-27] MEDS ORDERED: TEMAZEPAM 7.5 MG CAP PO PRN (23:30)
[2017-03-27 23:34] VITALS: O2SAT 99
[2017-03-27 23:46] VITALS: BP 125/78; PULSE 74; RESP 18; TEMP 96.2; O2SAT 95
[2017-03-28] VITALS (8 sets, daily range): BP systolic 126–170; BP diastolic 85–99; PULSE 74–93; RESP 18–20; TEMP 97.5–98.7; O2SAT 93–100
[2017-03-28 05:09] LABS: BASOPHIL % 0.7 % (0.0-2.0); EOSINOPHIL # 0.2 TH/MM3 (0-0.4); EOSINOPHIL % 3.1 % (0.0-4.0); HEMATOCRIT 28.2 % (39.0-51.0); HEMO FLAGS DIFF FINAL; LYMPH % 39.1 % (9.0-44.0); LYMPHOCYTE # 2.5 TH/MM3 (1.0-4.8); MEAN CELL VOLUME 92.3 FL (80.0-100.0); MEAN CORPUSCULAR HEMOGLOBIN 30.5 PG (27.0-34.0); MEAN CORPUSCULAR HGB CONC 33.1 % (32.0-36.0); MONO % 9.6 % (0.0-8.0); NEUT % 47.5 % (16.0-70.0); PLATELET COUNT 114 TH/MM3 (150-450); RED BLOOD COUNT 3.06 MIL/MM3 (4.50-5.90); WHITE BLOOD COUNT 6.4 TH/MM3 (4.0-11.0)
[2017-03-28] MEDS: ACETAMINOPHEN 325 MG TAB PO PRN ×3 (05:26→16:16)
[2017-03-28 05:34] LABS: BICARBONATE 26.2 MEQ/L (21.0-32.0); POTASSIUM 5.3 MEQ/L (3.5-5.1)
--- NOTE | 2017-03-28 07:17 | HHI.FPPN ---
Subjective Remarks No acute events overnight. Patient sleeping comfortably in bed this AM. States he and his step-father recently had a verbal dispute and he was kicked out of that house in [place] and he plans to move to [facility]. He has friends in the area and he states some extended family. He reports a headache he describes as cluster headaches, as well as generalized nonradiating dull chest pain and mild SOB. (Benito Skaggs MD R1) Objective Vitals Vital Signs Date Time Temp Pulse Resp B/P Pulse Ox O2 Delivery O2 Flow Rate FiO2 03/28/17 05:17 98.7 81 18 136/88 93 03/27/17 23:46 96.2 74 18 125/78 95 03/27/17 23:34 99 Nasal Cannula 2.00 03/27/17 22:45 72 18 127/85 99 Nasal Cannula 2 03/27/17 21:00 Room Air 03/27/17 20:32 99.2 98 16 148/98 99 Room Air (Benito Skaggs MD R1) Result Diagram: 03/28/17 0440 03/28/17 0440 Objective Remarks GENERAL: NAD, lying comfortably in bed SKIN: No rashes, ecchymoses or lesions. Cool and dry. HEAD: Atraumatic. Normocephalic. EYES: Extraocular motions intact. No scleral icterus. No injection or drainage. ENT: Throat without erythema. MMM. NECK: Trachea midline. No JVD or lymphadenopathy. CARDIOVASCULAR: Regular rate and rhythm without murmurs, gallops, or rubs. Pulses intact. Palpable thrill in fistula of LUE RESPIRATORY: Clear to auscultation. Breath sounds equal bilaterally. No wheezes , rales, or rhonchi. GASTROINTESTINAL: Abdomen soft, non-tender, nondistended. MUSCULOSKELETAL: Extremities without clubbing, cyanosis, or edema. No joint tenderness, effusion, or edema noted. No calf tenderness. NEUROLOGICAL: Awake and alert. Motor and sensory grossly within normal limits. Normal speech. (Benito Skaggs MD R1) A/P Assessment and Plan Patient is a pleasant 22 year old man with ESRD due to Alport syndrome admitted needing dialysis. Nephrology has been consulted. Discharge Planning Anticipate discharge today following dialysis and assistance with outpatient follow up and dialysis (Benito Skaggs MD R1) Attending Attestation Kilo Bryan is a 22yo gentleman recently admitted for hemodialysis after missing his regularly scheduled dialysis in [place]. He is now admitted for same, after being unable to return home to [place] due to family issues. He now plans to remain in [place] and establish dialysis here. He missed his regularly scheduled dialysis on Sunday. For further details, please see resident H&P. This afternoon, he is seen in dialysis. He complains of a headache, which is typically associated with dialysis. He denies any other concerns. ROS: No fevers, chills, SOB, edema, chest pain. + headache. All other systems reviewed are negative. PMH/PSxH/SocHx/FamHx : Per resident H&P. Significant for: ESRD from Alport syndrome, HTN. AV fistula surgery in left arm. Plans to live with a friend locally; had been in [place]. + tobacco use. Patient does not know mother' s or father's history. Patient will need to be established with outpatient dialysis. Appreciate nephrology, case management who will help to arrange this. Additional diagnosis: Anemia of chronic kidney disease: No active bleeding. hemoglobin at baseline. ( Jennifer Kennedy MD) Problem List: (1) ESRD (end stage renal disease) Status: Chronic Plan: Hx of Alport Syndrome. Been on dialysis for 3-4 years. Normally receives dialysis MWF in [place], however is now moving to [place]. Will need outpatient dialysis set up on discharge. Saw Dr. Lechuga last hospitalization. - Consult nephrology, appreciate recs - Will go for dialysis today - Continue home sensipar and renvela (2) Hypertension Status: Chronic Plan: - Continue amlodipine 5 mg po daily - Clonidine PRN - Monitor vitals q4h (3) Hyperkalemia Status: Acute Plan: K of 5.5 on admission. Level of 5.6 upon discharge two days ago. - EKG in sinus rhythm, no peaked T waves, no ST changes - Continue to monitor electrolytes - For HD today (4) Headache Status: Acute Plan: Pt endorses cluster headache. States he gets them off and on, especially associated with not getting dialysis - Administer supplemental oxygen - Tylenol PRN - Phenergan PRN (5) FEN Status: Acute Plan: Fluids: not indicated Electrolytes: Hyperkalemia, monitor s/p dialysis Nutrition: Renal diet DVT ppx: SCDs (Benito Skaggs MD R1) Problem Qualifiers (1) Hypertension: Qualified Code: I15.1 - Hypertension secondary to other renal disorders (2) Headache: Qualified Code: G44.019 - Episodic cluster headache, not intractable Benito Skaggs MD R1 March 28, 2017 07:17 Jennifer Kennedy MD March 28, 2017 20:49
[2017-03-28] MEDS: CINACALCET HYDROCHLORIDE 30 MG TAB PO SCH (09:11)
[2017-03-28] MEDS: amLODIPine BESYLATE 5 MG TAB PO SCH (09:12)
[2017-03-28] MEDS: SEVELAMER CARBONATE 800 MG TAB PO SCH ×3 (09:12→17:20)
[2017-03-28] MEDS ORDERED: SODIUM CHLOR 0.9% 1000 ML INJ 1,000 ML IV PRN ×2 (11:03)
[2017-03-28] MEDS: ALPRAZolam 1 MG TAB PO PRN (11:14)
[2017-03-28] MEDS ORDERED: GENTAMICIN SULFATE (DIALYSIS USE ONLY) 20 MG/2 ML VIAL IV PRN (11:15)
[2017-03-28] MEDS ORDERED: MANNITOL 12.5 GM/50 ML VIAL IV PRN (11:15)
[2017-03-28] MEDS ORDERED: HEPARIN SODIUM - IV 10,000 UNITS/10 ML VIAL PRN (11:15)
[2017-03-28] MEDS ORDERED: NITROGLYCERIN 0.4 MG SL 25 TABS/BTL SL PRN (11:15)
[2017-03-28] MEDS ORDERED: ACETAMINOPHEN 325 MG TAB PO PRN (11:15)
[2017-03-28] MEDS ORDERED: ALBUMIN HUMAN 25% 25 GM/100 ML BAGP IV PRN (11:15)
[2017-03-28] MEDS ORDERED: HEPARIN SODIUM - IV 10,000 UNITS/10 ML VIAL IVF PRN (11:15)
[2017-03-28] MEDS ORDERED: SODIUM CHLORIDE 0.9% FLUSH 10 ML FLUSH IV FLUSH PRN (11:15)
[2017-03-28] MEDS ORDERED: cloNIDine HCL 0.1 MG TAB PO PRN (11:15)
[2017-03-28] MEDS ORDERED: diphenhydrAMINE HCL 25 MG CAP PO PRN (11:15)
[2017-03-28] MEDS ORDERED: ONDANSETRON HCL 4 MG/2 ML VIAL IV PRN (11:15)
--- NOTE | 2017-03-28 11:29 | MB ---
cc: GABI WYATT MD DATE OF CONSULTATION 03/28/2017 REASON FOR CONSULTATION End-stage renal disease on hemodialysis for management. HISTORY OF PRESENT ILLNESS This is a 22-year-old male with past medical history of hypertension, Alport's syndrome, end-stage renal disease on hemodialysis three times per week, history of post-traumatic stress disorder, anxiety disorder, who came to the hospital because he has no place for dialysis. I was called to see the patient for the management of dialysis. The patient has been on hemodialysis Sunday, Sunday and Sunday. He used to live in [place], now he moved to this area and according to him right now, he has no place to stay except he is staying with one of his friends and he wants some outpatient dialysis management because he is not going back to [place]. It seems like talking to him, the patient has a history of noncompliance with his dialysis treatment and according to him he has been missing some treatment for one or another reason. I discussed with him and told him that he should not miss any treatment currently. He has mild shortness of breath. He does not have any chest pain. No nausea or vomiting. PAST MEDICAL HISTORY 1. Hypertension 2. End-stage renal disease on hemodialysis 3. Alport's syndrome 4. Anxiety 5. Post-traumatic stress disorder 6. Anemia PAST SURGICAL HISTORY Left arm AV fistula surgery. REVIEW OF SYSTEMS There is no history of fever. No headache or dizziness. He has generalized weakness, feeling tired and has shortness of breath, manual exertion. No cough. No chest pain. No palpitation. No nausea or vomiting. No abdominal pain. SOCIAL HISTORY The patient is single. He still smokes and is trying to cut down. He is down to two cigarettes a day. No history of heavy alcoholism. FAMILY HISTORY Positive for Alport's syndrome in two of his brothers and also his mother has Alport's syndrome. ALLERGIES She is allergic to ANTIDEPRESSANT, KLONOPIN, SERTRALINE, VALIUM. MEDICATIONS Currently he is on the following medications: 1. Amlodipine 5 mg once a day 2. Sensipar 30 mg daily 3. Renvela 2.4 grams t.i.d. 4. Xanax 2 mg p.r.n. PHYSICAL EXAM On examination, the patient is awake and alert. He is not in acute distress. VITAL SIGNS: His last blood pressure was 135/85, temperature is 98.2, oxygen saturation on two liters nasal cannula is 98%. HEENT Pupils equally reacting to light. Nonicteric sclerae. Conjunctivae pale. NECK: Supple. JVD is not elevated. LUNGS: The patient has bilateral decreased air entry with basilar rales and scattered wheezing. HEART: S1, S2, regular rhythm. ABDOMEN: Soft and lax. There is no tenderness. Bowel sounds positive. EXTREMITIES: He has he mild edema in the legs, left arm has AV fistula and has a good bruit. INVESTIGATIONS WBC count is 6.4 with a hemoglobin 9.3 and platelet count of 114. Sodium is 143, potassium 5.3, chloride 101, bicarb 26.2, BUN 65, creatinine 18.7. IMAGING STUDIES The patient had a chest x-ray done last night which shows the lung brasher clear. ASSESSMENT/PLAN 1. End-stage renal disease on hemodialysis 2. Hypertension 3. Anemia 4. History of Alport Syndrome. 5. Anxiety and post traumatic stress disorder. The patient had the last hemodialysis done when he was admitted here over the weekend on Sunday and then he was discharged on Sunday and today is his regular day for dialysis. I will arrange for his hemodialysis today and give him Epogen for the anemia. His blood pressure is stable. He will need outpatient dialysis arrangement for which case liner has been consulted. He probably has some problem with insurance also which may take some more time so I will follow him while he is in the hospital and he will continue dialysis Sunday, Sunday and Sunday. Thank you for the consultation. I will follow the patient while he is in the hospital. MD STEVEN Posadas/RENETTA /11:03 AM /11:11 AM
[2017-03-28] MEDS: EPOETIN ALFA 10,000 UNITS/ML VIAL IV PRN (13:10)
[2017-03-28] MEDS: GELATIN 12 MM/7 MM FOAM TOP PRN (14:52)
--- NOTE | 2017-03-28 19:33 | EKG ---
Date Performed: 03/27/2017 Time Performed: 23:24:17 PTAGE: 22 years EKG: Sinus rhythm POSSIBLE LEFT ATRIAL ENLARGEMENT BORDERLINE ECG PREVIOUS TRACING : 03/24/2017 12.35 Compared to prior tracing no significant change DOCTOR: Romulo Holland Interpretating Date/Time 03/28/2017 19:31:57
[2017-03-29] VITALS (8 sets, daily range): BP systolic 120–142; BP diastolic 71–96; PULSE 70–88; RESP 16–23; TEMP 97.2–98.8; O2SAT 95–100
[2017-03-29 04:24] LABS: AUTOMATED NEUTROPHIL # 4.7 TH/MM3 (1.8-7.7); BASOPHIL % 0.4 % (0.0-2.0); EOSINOPHIL # 0.2 TH/MM3 (0-0.4); EOSINOPHIL % 2.5 % (0.0-4.0); HEMO FLAGS DIFF FINAL; LYMPH % 27.4 % (9.0-44.0); LYMPHOCYTE # 2.1 TH/MM3 (1.0-4.8); MEAN CELL VOLUME 91.7 FL (80.0-100.0); MEAN CORPUSCULAR HEMOGLOBIN 30.1 PG (27.0-34.0); MEAN CORPUSCULAR HGB CONC 32.8 % (32.0-36.0); MONO % 9.3 % (0.0-8.0); NEUT % 60.4 % (16.0-70.0); PLATELET COUNT 133 TH/MM3 (150-450); RED BLOOD COUNT 3.49 MIL/MM3 (4.50-5.90); RED CELL DISTRIBUTION WIDTH 13.8 % (11.6-17.2); WHITE BLOOD COUNT 7.7 TH/MM3 (4.0-11.0)
[2017-03-29 04:48] LABS: BICARBONATE 31.5 MEQ/L (21.0-32.0); MAGNESIUM 2.3 MG/DL (1.5-2.5); POTASSIUM 5.1 MEQ/L (3.5-5.1)
[2017-03-29] MEDS: amLODIPine BESYLATE 5 MG TAB PO SCH (08:56)
[2017-03-29] MEDS: CINACALCET HYDROCHLORIDE 30 MG TAB PO SCH (08:56)
[2017-03-29] MEDS: SEVELAMER CARBONATE 800 MG TAB PO SCH ×3 (08:57→18:16)
[2017-03-29] MEDS ORDERED: IMIT50TA PO (10:08)
[2017-03-29] MEDS: ALPRAZolam 1 MG TAB PO PRN (12:09)
--- NOTE | 2017-03-29 12:24 | HHI.FPPN ---
Subjective Remarks No acute events overnight. Afebrile, vitals are stable. Hgb stable at 10.5. Patient is awake this morning, very pleasant. His only complaint is of a headache. He endorses scintillating scotomas associated with his headaches. He states he had received an injection in the past that helped with his headache but cannot recall the name of this. He otherwise has no complaints. Denies CP or SOB. He states he is still planning to stay in the area and live at a house with friends. He would like to establish with a office machinery or equipment installer here and find a dialysis center. (Benito Skaggs MD R1) Objective Vitals Vital Signs Date Time Temp Pulse Resp B/P Pulse Ox O2 Delivery O2 Flow Rate FiO2 03/29/17 11:31 98.7 88 16 142/96 98 03/29/17 07:45 70 03/29/17 07:44 98.8 78 17 128/80 95 03/29/17 04:30 98.2 70 17 123/78 96 03/29/17 00:18 97.2 81 17 140/80 95 03/28/17 20:07 97.5 79 18 133/88 98 03/28/17 17:23 76 138/91 03/28/17 16:19 83 20 170/99 100 03/28/17 15:59 (Benito Skaggs MD R1) Result Diagram: 03/29/17 0353 03/29/17 0353 Objective Remarks GENERAL: NAD, lying comfortably in bed SKIN: No rashes, ecchymoses or lesions. Cool and dry. HEAD: Atraumatic. Normocephalic. EYES: Extraocular motions intact. No scleral icterus. No injection or drainage. ENT: Throat without erythema. MMM. NECK: Trachea midline. No JVD or lymphadenopathy. CARDIOVASCULAR: Regular rate and rhythm without murmurs, gallops, or rubs. Pulses intact. Palpable thrill in fistula of LUE RESPIRATORY: Clear to auscultation. Breath sounds equal bilaterally. No wheezes , rales, or rhonchi. GASTROINTESTINAL: Abdomen soft, non-tender, nondistended. MUSCULOSKELETAL: Extremities without clubbing, cyanosis, or edema. No joint tenderness, effusion, or edema noted. No calf tenderness. NEUROLOGICAL: Awake and alert. Motor and sensory grossly within normal limits. Normal speech. (Benito Skaggs MD R1) A/P Assessment and Plan Patient is a pleasant 22 year old man with ESRD due to Alport syndrome admitted needing dialysis. Nephrology has been consulted. Discharge Planning Stable for discharge today CM assisting patient with establishing with a dialysis center here in the [facility] and with a office machinery or equipment installer (Benito Skaggs MD R1) Attending Attestation Patient seen, examined, and discussed with resident team. I agree with assessment and management as documented and discussed with me. Pt complains of headache - initiate imitrex for suspected migraine. Await case management / nephrology to arrange outpatient dialysis (Jennifer Kennedy MD) Problem List: (1) ESRD (end stage renal disease) Status: Chronic Plan: Hx of Alport Syndrome. Been on dialysis for 3-4 years. Normally receives dialysis MW in [place], however is now moving to [place]. Will need outpatient dialysis set up on discharge. Saw Dr. Lechuga last hospitalization. - Consult nephrology, appreciate recs - Continue home sensipar and renvela (2) Hypertension Status: Chronic Plan: - Continue amlodipine 5 mg po daily - Clonidine PRN - Monitor vitals q4h (3) Hyperkalemia Status: Acute Plan: K of 5.5 on admission. Level of 5.6 upon discharge two days ago. - EKG in sinus rhythm, no peaked T waves, no ST changes - Continue to monitor electrolytes; normalized to 5.1 today s/p HD (4) Headache Status: Acute Plan: Symptoms c/w migraines with aura - Administer supplemental oxygen - Sumatriptan 6 mg subq prn migraines, may repeat x1 dose after 1 hour if migraine still significant; max 2 doses in 24 hours (5) FEN Status: Acute Plan: Fluids: not indicated Electrolytes: continue to monitor Nutrition: Renal diet DVT ppx: SCDs (Benito Skaggs MD R1) Problem Qualifiers (1) Hypertension: Qualified Code: I15.1 - Hypertension secondary to other renal disorders (2) Headache: Qualified Code: G44.019 - Episodic cluster headache, not intractable Benito Skaggs MD R1 March 29, 2017 12:24 Jennifer Kennedy MD March 30, 2017 10:42
[2017-03-29] MEDS: SUMAtriptan INJ 6 MG/0.5 ML VIAL SQ PRN ×2 (12:50→22:32)
--- NOTE | 2017-03-29 17:28 | HHI.NPPN ---
Subjective History of Present Illness 22-year-old male with past medical history of hypertension, Alport's syndrome, end-stage renal disease on hemodialysis three times per week, history of post-traumatic stress disorder, anxiety disorder, who came to the hospital because he has no place for dialysis. I was called to see the patient for the management of dialysis. The patient has been on hemodialysis Sunday, Sunday and Sunday. Additional Remarks Patient is alert, feeling tired, no SOB. Review of Systems General Constitutional: Fatigue Respiratory Lungs: SOB Cardiovascular Cardiac: Edema, ADAMS Objective Data Data Vital Signs Date Time Temp Pulse Resp B/P Pulse Ox O2 Delivery O2 Flow Rate FiO2 03/29/17 15:36 98.7 79 23 120/71 97 03/29/17 11:31 98.7 88 16 142/96 98 03/29/17 07:45 70 03/29/17 07:44 98.8 78 17 128/80 95 03/29/17 04:30 98.2 70 17 123/78 96 03/29/17 00:18 97.2 81 17 140/80 95 03/28/17 20:07 97.5 79 18 133/88 98 03/28/17 17:23 76 138/91 -: 03/29/17 0353 03/29/17 0353 Physical Exam General Appearance: No Acute Distress, Comfortable Eyes Eye Exam: Pupils Equal Throat Throat Exam: Oral Mucosa [place] & Moist Neck Neck Exam: Neck Supple Pulmonary Resp Exam: No Distress, Rhonchi, Decreased Bases, Diminished Breath Sounds Cardiology CV Exam: Regular, Normal Sinus Rhythm Gastrointestinal/Abdomen GI Exam: Soft, Non-Tender, Bowel Sounds Present Extremeties Extremities Exam: Trace Edema Neurologic Neuro Exam: Alert, Awake, Oriented Psychiatric Psych Exam: Appropriate Responses Assessment/Plan Assessment Summary: Hypertension, End Stage Renal Disease Problem List: (1) Hypertension (2) Headache (3) Hyperkalemia (4) ESRD (end stage renal disease) Plan Patient has HD done yesterday. He is now staying in [facility], and want to go for Nocturnal HD. I discussed with the patient and he agreed for me to take care of him at [facility]. Possible D/C tomorrow after HD. Problem Qualifiers (1) Hypertension: Qualified Code: I15.1 - Hypertension secondary to other renal disorders (2) Headache: Qualified Code: G44.019 - Episodic cluster headache, not intractable Bety Lechuga MD March 29, 2017 17:27
[2017-03-30 00:20] VITALS: BP 129/88; PULSE 77; RESP 18; TEMP 97.6; O2SAT 97
[2017-03-30 03:50] VITALS: BP 119/75; PULSE 77; RESP 18; TEMP 98; O2SAT 96
[2017-03-30 07:56] VITALS: BP 129/81; PULSE 80; RESP 16; TEMP 98.1; O2SAT 96
[2017-03-30] MEDS: SEVELAMER CARBONATE 800 MG TAB PO SCH ×3 (09:00→13:33)
[2017-03-30] MEDS: EPOETIN ALFA 10,000 UNITS/ML VIAL IV PRN (10:21)
[2017-03-30] MEDS: GELATIN 12 MM/7 MM FOAM TOP PRN (10:21)
[2017-03-30] MEDS: SODIUM CHLOR 0.9% 1000 ML INJ 1,000 ML IV PRN ×2 (10:21→12:39)
--- NOTE | 2017-03-30 10:36 | HHI.FPPN ---
Subjective Remarks The patient is getting dialysis this morning. He is doing fine. He is having intermittent headaches consistent with previous history of migraines. Sumatriptan and has helped. He would like to be discharged later today if possible. Denies chest pain, nausea, vomiting, shortness of breath. (Magen Jordan MD R2) Objective Vitals Vital Signs Date Time Temp Pulse Resp B/P Pulse Ox O2 Delivery O2 Flow Rate FiO2 03/30/17 07:56 98.1 80 16 129/81 96 03/30/17 03:50 98.0 77 18 119/75 96 03/30/17 00:25 18 03/30/17 00:20 97.6 77 18 129/88 97 03/29/17 20:48 98 Nasal Cannula 2.00 03/29/17 19:44 97.9 82 21 135/88 100 03/29/17 15:36 98.7 79 23 120/71 97 03/29/17 11:31 98.7 88 16 142/96 98 (Magen Jordan MD R2) Result Diagram: 03/29/17 0353 03/29/17 0353 Objective Remarks GENERAL: NAD, lying comfortably in bed getting dialysis SKIN: No rashes, ecchymoses or lesions. Cool and dry. HEAD: Atraumatic. Normocephalic. EYES: Extraocular motions intact. No scleral icterus. No injection or drainage. ENT: Throat without erythema. MMM. NECK: Trachea midline. No JVD or lymphadenopathy. CARDIOVASCULAR: Regular rate and rhythm without murmurs, gallops, or rubs. Pulses intact. Palpable thrill in fistula of LUE RESPIRATORY: Clear to auscultation. Breath sounds equal bilaterally. No wheezes , rales, or rhonchi. GASTROINTESTINAL: Abdomen soft, non-tender, nondistended. MUSCULOSKELETAL: Extremities without clubbing, cyanosis, or edema. No joint tenderness, effusion, or edema noted. No calf tenderness. NEUROLOGICAL: Awake and alert. Motor and sensory grossly within normal limits. Normal speech. (Magen Jordan MD R2) A/P Assessment and Plan Patient is a pleasant 22 year old man with ESRD due to Alport syndrome admitted needing dialysis. Nephrology has been consulted. Discharge Planning Stable for discharge today CM assisting patient with establishing with a dialysis center here in the [facility] and with a supervisor residential (Magen Jordan MD R2) Attending Attestation Patient seen and examined, discussed with resident team. I agree with assessment and management as documented and discussed with me. Pt seen in dialysis. Await arrangement of outpatient dialysis. (Jennifer Kennedy MD) Problem List: (1) ESRD (end stage renal disease) Status: Chronic Plan: Hx of Alport Syndrome. Been on dialysis for 3-4 years. Normally receives dialysis MWF in [place], however is now moving to [place]. Will need outpatient dialysis set up on discharge. - Consult nephrology, appreciate recs - Continue home sensipar and renvela (2) Hypertension Status: Chronic Plan: - Continue amlodipine 5 mg po daily - Clonidine PRN - Monitor vitals q4h (3) Hyperkalemia Status: Acute Plan: K of 5.5 on admission. Level of 5.6 upon discharge two days ago. - EKG in sinus rhythm, no peaked T waves, no ST changes - Continue to monitor electrolytes; normalized to 5.1 today s/p HD (4) Headache Status: Acute Plan: Symptoms c/w migraines with aura - Administer supplemental oxygen - Sumatriptan 6 mg subq prn migraines, may repeat x1 dose after 1 hour if migraine still significant; max 2 doses in 24 hours (5) FEN Status: Acute Plan: Fluids: not indicated Electrolytes: continue to monitor Nutrition: Renal diet DVT ppx: SCDs (Magen Jordan MD R2) Problem Qualifiers (1) Hypertension: Qualified Code: I15.1 - Hypertension secondary to other renal disorders (2) Headache: Qualified Code: G44.019 - Episodic cluster headache, not intractable Magen Jordan MD R2 March 30, 2017 10:36 Jennifer Kennedy MD March 30, 2017 15:27
--- NOTE | 2017-03-30 11:59 | HHI.DCPOC ---
Discharge Care Plan Diagnosis: (1) ESRD (end stage renal disease) Goals to Promote Your Health * To prevent worsening of your condition and complications * To maintain your health at the optimal level Directions to Meet Your Goals Take your medications as prescribed Follow your dietary instruction Follow activity as directed Keep your appointments as scheduled Take your immunizations and boosters as scheduled If your symptoms worsen call your PCP, if no PCP go to Urgent Care Center or Emergency Room Smoking is Dangerous to Your Health. Avoid second hand smoke Call the 24-hour hour crisis hotline for domestic abuse at Magen Jordan MD R2 March 30, 2017 11:59
[2017-03-30] MEDS: SUMAtriptan INJ 6 MG/0.5 ML VIAL SQ PRN (12:18)
[2017-03-30] MEDS: amLODIPine BESYLATE 5 MG TAB PO SCH (12:19)
[2017-03-30] MEDS: CINACALCET HYDROCHLORIDE 30 MG TAB PO SCH (12:19)
[2017-03-30 12:41] VITALS: BP 150/92; PULSE 82; RESP 18; TEMP 98.2; O2SAT 98
[2017-03-30] MEDS: ALPRAZolam 1 MG TAB PO PRN (12:48)
--- NOTE | 2017-03-30 13:25 | HHI.NPPN ---
Subjective History of Present Illness 22-year-old male with past medical history of hypertension, Alport's syndrome, end-stage renal disease on hemodialysis three times per week, history of post-traumatic stress disorder, anxiety disorder, who came to the hospital because he has no place for dialysis. I was called to see the patient for the management of dialysis. The patient has been on hemodialysis Sunday, Sunday and Sunday. Additional Remarks Patient is alert, feeling tired, no SOB. Review of Systems General Constitutional: Fatigue Respiratory Lungs: SOB Cardiovascular Cardiac: Edema, ADAMS Objective Data Data Vital Signs Date Time Temp Pulse Resp B/P Pulse Ox O2 Delivery O2 Flow Rate FiO2 03/30/17 12:41 98.2 82 18 150/92 98 03/30/17 07:56 98.1 80 16 129/81 96 03/30/17 03:50 98.0 77 18 119/75 96 03/30/17 00:25 18 03/30/17 00:20 97.6 77 18 129/88 97 03/29/17 20:48 98 Nasal Cannula 2.00 03/29/17 19:44 97.9 82 21 135/88 100 03/29/17 15:36 98.7 79 23 120/71 97 -: 03/29/17 0353 03/29/17 0353 Physical Exam General Appearance: No Acute Distress, Comfortable Eyes Eye Exam: Pupils Equal Throat Throat Exam: Oral Mucosa [place] & Moist Neck Neck Exam: Neck Supple Pulmonary Resp Exam: No Distress, Rhonchi, Decreased Bases, Diminished Breath Sounds Cardiology CV Exam: Regular, Normal Sinus Rhythm Gastrointestinal/Abdomen GI Exam: Soft, Non-Tender, Bowel Sounds Present Extremeties Extremities Exam: Trace Edema Neurologic Neuro Exam: Alert, Awake, Oriented Psychiatric Psych Exam: Appropriate Responses Assessment/Plan Assessment Summary: Hypertension, End Stage Renal Disease Problem List: (1) Hypertension (2) Headache (3) Hyperkalemia (4) ESRD (end stage renal disease) Plan Patient has HD done yesterday. He is now staying in [facility], and want to go for Nocturnal HD. I discussed with the patient and he agreed for me to take care of him at [facility]. Possible D/C tomorrow after HD. Problem Qualifiers (1) Hypertension: Qualified Code: I15.1 - Hypertension secondary to other renal disorders (2) Headache: Qualified Code: G44.019 - Episodic cluster headache, not intractable Bety Lechuga MD March 30, 2017 13:25
[2017-03-30 14:27] VITALS: PULSE 71
[2017-03-30 15:28] VITALS: BP 131/80; PULSE 80; RESP 18; TEMP 98.2; O2SAT 97
--- NOTE | 2017-04-01 10:30 | HHI.DS ---
Discharge Summary Admission Date March 27, 2017 at 22:18 Discharge Date: March 30, 2017 Admitting Diagnosis renal failure (1) ESRD (end stage renal disease) Diagnosis: Principal Plan: Hx of Alport Syndrome. Been on dialysis for 3-4 years. Normally receives dialysis MWF in [place], however is now moving to [place]. Will need outpatient dialysis set up on discharge. - Consult nephrology, appreciate recs - Continue home sensipar and renvela (2) Hypertension Diagnosis: Secondary Plan: - Continue amlodipine 5 mg po daily - Clonidine PRN - Monitor vitals q4h (3) Hyperkalemia Diagnosis: Secondary Plan: K of 5.5 on admission. Level of 5.6 upon discharge two days ago. - EKG in sinus rhythm, no peaked T waves, no ST changes - Continue to monitor electrolytes; normalized to 5.1 today s/p HD (4) Headache Diagnosis: Secondary Plan: Symptoms c/w migraines with aura - Administer supplemental oxygen - Sumatriptan 6 mg subq prn migraines, may repeat x1 dose after 1 hour if migraine still significant; max 2 doses in 24 hours (5) FEN Diagnosis: Secondary Plan: Fluids: not indicated Electrolytes: continue to monitor Nutrition: Renal diet DVT ppx: SCDs Consultants Nephrology Procedures Dialysis Brief History 22 y/o male with Alport syndrome presents to ED for dialysis. He was just admitted and discharged on Sunday03/25/17. Since being discharged, he did not receive dialysis. He states that he feels toxins building up in his body. He endorses body aches over his entire body. Endorses cluster headache. Some nausea. Some shortness of breath. He normally receives dialysis MWF in [place] with Dr. Nation at [facility]. Pt has anuria. He lives in [place] with his step-father, however, was kicked out and states he is basically homeless. He is now living with a friend in [place] and will be living here permanently. Pt was seen by Dr. Lechuga at last admission and received dialysis. However, was scheduled to follow-up in [place] for further dialysis, but was unable to. CBC/BMP: 03/29/17 0353 03/29/17 0353 Imaging Last Impressions Chest X-Ray 03/27/172047 Signed Impressions: Service Date/Time: Monday, March 27, 2017 21:19 - CONCLUSION: No acute disease. Lavon Sotomayor MD PE at Discharge GENERAL: NAD, lying comfortably in bed getting dialysis SKIN: No rashes, ecchymoses or lesions. Cool and dry. HEAD: Atraumatic. Normocephalic. EYES: Extraocular motions intact. No scleral icterus. No injection or drainage. ENT: Throat without erythema. MMM. NECK: Trachea midline. No JVD or lymphadenopathy. CARDIOVASCULAR: Regular rate and rhythm without murmurs, gallops, or rubs. Pulses intact. Palpable thrill in fistula of LUE RESPIRATORY: Clear to auscultation. Breath sounds equal bilaterally. No wheezes , rales, or rhonchi. GASTROINTESTINAL: Abdomen soft, non-tender, nondistended. MUSCULOSKELETAL: Extremities without clubbing, cyanosis, or edema. No joint tenderness, effusion, or edema noted. No calf tenderness. NEUROLOGICAL: Awake and alert. Motor and sensory grossly within normal limits. Normal speech. Hospital Course Nephrology was consulted for routine dialysis. Case management was consulted to help patient find a crop quantitative geneticist in the [place] area. The patient will be able to receive dialysis at [facility] dialysis on [facility] Sunday. Additionally, during the patient's course, he developed migraine headaches which responded well to sumatriptan IM. Pt Condition on Discharge: Fair Discharge Disposition: Discharge Home Discharge Instructions DIET: Follow Instructions for: Renal Failure Diet Activities you can perform: Regular-No Restrictions Follow up Referrals: Nephrology - 1 Week PCP Follow-up - 1 Week Continued Medications: Alprazolam (Alprazolam) 2 Mg Tab 2 MG PO Q8H PRN ANXIETY Ref 0 TAB Amlodipine (Amlodipine) 5 Mg Tab 5 MG PO DAILY Blood Pressure Management #30 Ref 0 TAB Cinacalcet (Sensipar) 30 Mg Tab 30 MG PO DAILY #30 Ref 0 TAB Promethazine (Phenergan) 25 Mg Tab 25 MG PO Q6H PRN Nausea/Vomiting Ref 0 TAB Sevelamer Carbonate (Renvela) 800 Mg Tab 2400 MG PO TID Control phosphorous levels #90 Ref 0 TAB Sumatriptan (Imitrex) 50 Mg Tab 50 MG PO ONCE If a satisfactory response has not been obtained at 2 hours, a second dose may be administered PRN MIGRAINE HEADACHE Ref 0 TAB Temazepam (Restoril) 22.5 Mg Cap 22.5 MG PO HS PRN INSOMNIA #30 Ref 0 CAP Magen Jordan MD R2 April 01, 2017 10:30
== END 2017-03-30 17:51 | disposition home or self-care (01) ==
LOC: NEPD 20:28 → NEDA 22:18 → NEPFCDU 23:42
PROVIDERS: ADMIT Family Medicine; ATTEND Family Medicine
DX: I12.0 Hypertensive chronic kidney disease with stage 5 chronic kidney disease or end stage renal disease (principal); N18.6 End stage renal disease; Q87.81 Alport syndrome; G43.109 Migraine with aura, not intractable, without status migrainosus; E87.5 Hyperkalemia; D63.1 Anemia in chronic kidney disease; F17.210 Nicotine dependence, cigarettes, uncomplicated; F43.10 Post-traumatic stress disorder, unspecified; Z59.0 Homelessness; Z99.2 Dependence on renal dialysis; Z91.19 Patient's noncompliance with other medical treatment and regimen; H91.93 Unspecified hearing loss, bilateral
CPT/HCPCS: 71020; 80048; 83735; 84100; 85025; 93005; 96374; 99285; G0257; G0378; J3030; J7030; Q4081; 90935

== ENCOUNTER 2017-05-03 20:05 | Emergency (ER) | payer MEDICARE ==
[~2017-05-03] VITALS: Ht 170.2 cm; Wt 65.0 kg
[~2017-05-03 20:05] MED LIST changes: +IMIT50TA PO
[2017-05-03 20:08] VITALS: BP 173/112; PULSE 90; RESP 16; TEMP 98.6; O2SAT 96
[2017-05-03 20:32] VITALS: BP 178/108; PULSE 85; RESP 18; O2SAT 96
[2017-05-03] MEDS ORDERED: NIFEdipine 60 MG SUSTAINED RELEASE TAB PO ONE (20:45)
[2017-05-03 21:14] VITALS: BP 168/106; PULSE 82; RESP 18; O2SAT 97
[2017-05-03] MEDS ORDERED: ONDANSETRON HCL 4 MG/2 ML VIAL IV PUSH ONE (21:15)
[2017-05-03] MEDS ORDERED: HYDROmorphone HCL PF 1 MG/ML VIAL IV PUSH ONE (21:15)
--- NOTE | 2017-05-03 22:06 | RADRPT ---
EXAM DATE/TIME: 05/03/2017 21:57 [facility] COMPARISON: No previous studies available for comparison. INDICATIONS : Cephalgia. RADIATION DOSE: 56.35 CTDIvol (mGy) MEDICAL HISTORY : Hypertension. Seizures. SURGICAL HISTORY : None. ENCOUNTER: Initial ACUITY: 1 day PAIN SCALE: 7/10 LOCATION: cranial TECHNIQUE: Multiple contiguous axial images were obtained of the head. Using automated exposure control and adj ustment of the mA and/or kV according to patient size, radiation dose was kept as low as reasonably a chievable to obtain optimal diagnostic quality images. DICOM format image data is available electro nically for review and comparison. FINDINGS: CEREBRUM: The ventricles are normal for age. No evidence of midline shift, mass lesion, hemorrhage or acute in farction. No extra-axial fluid collections are seen. POSTERIOR FOSSA: The cerebellum and brainstem are intact. The 4th ventricle is midline. The cerebellopontine angle i s unremarkable. EXTRACRANIAL: The visualized portion of the orbits is intact. SKULL: The calvaria is intact. No evidence of skull fracture. CONCLUSION: Unremarkable noncontrast CT. Lavon Sotomayor MD on May 03, 2017 at 22:03 Board Certified Radiologist. This report was verified electronically.
[2017-05-03] MEDS ORDERED: BUTA1CAP PO (22:32)
[2017-05-03] MEDS ORDERED: CYCL1TAB29 PO (22:32)
--- NOTE | 2017-05-03 22:33 | PD ---
HPI Chief Complaint: Hypertension Time Seen by Provider: 20:43 Travel History International Travel<30 days: No Contact w/Intl Traveler<30days: No Traveled to known affect area: No History of Present Illness HPI C/O HEADACHE, GENERALIZED, SQUEEZING TYPE, NONRADIATING, NO ALLEVIATING OR AGGRAVATING FACTORS AND DENIES N/V/PHOTOPHOBIA NOR ANY LATERALIZING WEAKNESS OR DEFICITS AT THIS POINT PFSH Past Medical History Hx Anticoagulant Therapy: No Blood Disorders: No Anxiety: Yes Heart Rhythm Problems: No Cancer: No Cardiovascular Problems: Yes High Cholesterol: No Chemotherapy: No Chest Pain: No Congestive Heart Failure: No Cerebrovascular Accident: No Diabetes: No Patient Takes Glucophage: No Dialysis: Yes (M/W/F) Diminished Hearing: Yes (bilat [place]) Endocrine: No Gastrointestinal Disorders: No Genitourinary: Yes Hypertension: Yes Immune Disorder: No Musculoskeletal: No Neurologic: No Reproductive: No Respiratory: No Immunizations Current: Yes Radiation Therapy: No Seizures: Yes Tetanus Vaccination: > 5 Years Influenza Vaccination: Yes Past Surgical History Other Surgery: Yes (LT ARM AV FISTULA) Social History Alcohol Use: No Tobacco Use: Yes (2-3 cigarettes per day) Substance Use: No Allergies-Medications (Allergen,Severity, Reaction): Coded Allergies: Klonopin (Verified Allergy, Intermediate, Itching, 03/27/17) Sertraline (Verified Allergy, Intermediate, Itching, 03/27/17) Valium (Verified Allergy, Intermediate, Itching, 03/27/17) Uncoded Allergies: ANTIANXIETY (Allergy, Intermediate, Itching, 03/24/17) ANTIDEPRESSANTS (Allergy, Intermediate, Itching, 03/24/17) Reported Meds & Prescriptions Reported Meds & Active Scripts Active Amlodipine (Amlodipine Besylate) 5 Mg Tab 5 Mg PO DAILY Reported Imitrex (Sumatriptan Succinate) 50 Mg Tab 50 Mg PO ONCE PRN If a satisfactory response has not been obtained at 2 hours, a second dose may be administered Restoril (Temazepam) 22.5 Mg Cap 22.5 Mg PO HS PRN Phenergan (Promethazine HCl) 25 Mg Tab 25 Mg PO Q6H PRN Sensipar (Cinacalcet) 30 Mg Tab 30 Mg PO DAILY Renvela (Sevelamer Carbonate) 800 Mg Tab 2,400 Mg PO TID Alprazolam 2 Mg Tab 2 Mg PO Q8H PRN Review of Systems Except as stated in HPI: all other systems reviewed are Neg Neurologic: Positive: Headache Physical Exam Narrative GENERAL: SKIN: Warm and dry. HEAD: Atraumatic. Normocephalic. EYES: Pupils equal and round. No scleral icterus. No injection or drainage. ENT: No nasal bleeding or discharge. Mucous membranes pink and moist. NECK: Trachea midline. No JVD. CARDIOVASCULAR: Regular rate and rhythm. RESPIRATORY: No accessory muscle use. Clear to auscultation. Breath sounds equal bilaterally. GASTROINTESTINAL: Abdomen soft, non-tender, nondistended. Hepatic and splenic margins not palpable. MUSCULOSKELETAL: Extremities without clubbing, cyanosis, or edema. No obvious deformities. LEFT BICEP HAS SHUNT (MWF NEUROLOGICAL: Awake and alert. No obvious cranial nerve deficits. Motor grossly within normal limits. Five out of 5 muscle strength in the arms and legs. Normal speech. PSYCHIATRIC: Appropriate mood and affect; insight and judgment normal. Data Data Last Documented VS Vital Signs Date Time Temp Pulse Resp B/P Pulse Ox O2 Delivery O2 Flow Rate FiO2 05/03/17 21:14 82 18 168/106 97 Room Air 05/03/17 20:[address] Brain W/O Iv Contrast(Rout) (05/03/17 20:43) Nifedipine Sr (Procardia Xl) (05/03/17 20:45) Ondansetron Inj (Zofran Inj) (05/03/17 21:15) Hydromorphone Pf Inj (Dilaudid Pf Inj) (05/03/17 21:15) Electrocardiogram (05/03/17 20:28) MDM Medical Decision Making Medical Screen Exam Complete: Yes Emergency Medical Condition: Yes Medical Record Reviewed: Yes Differential Diagnosis ICH V TENSION TAO V SINUS TAO V UNCONTROLLED HTN Narrative Course CT NEG FOR ICH, PATIENT IS A/OX4, FUENTES AND AT BASELINE....PAIN IS CONTROLLED AND WILL D/C, ADVISED TO KEEP HIS DIALYSIS APPOINTMENT (M/W/F) Diagnosis Primary Impression: TENSION HEADACHE Additional Impression: HYPERTENSIVE Patient Instructions: General Instructions, Tension Headache (ED) Scripts Cyclobenzaprine (Flexeril)10 Mg Tab10 Mg PO TID #10 TAB Prov:Jaren Mock MD 05/03/17 Wtbmujzzgj-Fmhtitglskeyj-Bbicaqyo (Fioricet)50-300-40 Mg Cap1 Cap PO Q4H PRN ( HEADACHE) #20 CAP Ref 0 Prov:Jaren Mock MD 05/03/17 Disposition: 01 DISCHARGE HOME Condition: Stable Jaren Mock MD May 03, 2017 22:32
[2017-05-03] MEDS ORDERED: SUMAtriptan INJ 6 MG/0.5 ML VIAL SQ ONE (22:45)
[2017-05-03 22:52] VITALS: BP 162/102; PULSE 81; RESP 18; O2SAT 96
--- NOTE | 2017-05-04 04:58 | EKG ---
Date Performed: 05/03/2017 Time Performed: 20:28:40 PTAGE: 22 years EKG: BASELINE ARTIFACT PRESENT. Probable Sinus rhythm POSSIBLE LEFT ATRIAL ENLARGEMENT POSSIBLE RIGHT VENTRICULAR CONDUCTION DELAY Nonspecific ST-T wave c hanges ABNORMAL ECG I do not think there is significant change but present electrocardiogram does hav e artifact. PREVIOUS TRACING : 03/27/2017 23.24 DOCTOR: Larry Dorman Interpretating Date/Time 05/04/2017 04:57:50
== END 2017-05-03 23:08 | disposition home or self-care (01) ==
LOC: NEPC 20:05
DX: G44.40 Drug-induced headache, not elsewhere classified, not intractable (principal); I10 Essential (primary) hypertension; F41.9 Anxiety disorder, unspecified; R56.9 Unspecified convulsions; F17.210 Nicotine dependence, cigarettes, uncomplicated; Z79.899 Other long term (current) drug therapy; Z99.2 Dependence on renal dialysis
CPT/HCPCS: 70450; 93005; 96372; 96374; 96375; 99285; J1170; J2405; J3030

== ENCOUNTER 2017-05-06 22:43 | Emergency (ER) | payer MEDICARE, OTHER ==
[~2017-05-06] VITALS: Ht 167.6 cm; Wt 74.0 kg
[~2017-05-06 22:43] MED LIST changes: -AMLO5TAB2 PO; +BUTA1CAP PO; -PROM25TA5 PO
[2017-05-06 22:45] VITALS: BP 172/110; PULSE 98; RESP 14; TEMP 98.9; O2SAT 99
--- NOTE | 2017-05-06 22:57 | PD ---
Physical Exam Date Seen by Provider: May 06, 2017 Time Seen by Provider: 22:54 Data Data Last Documented VS Vital Signs Date Time Temp Pulse Resp B/P Pulse Ox O2 Delivery O2 Flow Rate FiO2 05/06/17 22:45 98.9 98 14 172/110 99 Room Air MDM Supervised Visit with [facility]U: No Narrative Course 22 YO M with complaint of swelling of the lower extremities since yesterday. + SOB and CP. Pt endorses history of kidney disease. Dialysis MWF. Vitals reviewed. Patient seen in triage, awaiting bed placement. María Godwin May 06, 2017 22:57
[2017-05-07] MEDS ORDERED: SODIUM CHLORIDE 0.9% FLUSH 10 ML FLUSH IVF PRN (01:00)
[2017-05-07] MEDS ORDERED: LORazepam 2 MG/ML VIAL IV PUSH ONE (01:30)
[2017-05-07 01:46] VITALS: RESP 18; O2SAT 96
--- NOTE | 2017-05-07 01:47 | RADRPT ---
EXAM DATE/TIME: 05/07/2017 01:05 [facility] COMPARISON: CHEST PA & LAT, March 27, 2017, 21:19. INDICATIONS : Short of breath. MEDICAL HISTORY : Hypertension. Smoker. Dialysis. SURGICAL HISTORY : None. ENCOUNTER: Initial ACUITY: 1 day PAIN SCORE: 0/10 LOCATION: Bilateral chest FINDINGS: A single view of the chest demonstrates cardiomegaly with interstitial edema. No pleural effusions or pneumothorax.. Osseous structures are intact. CONCLUSION: 1. Cardiomegaly with interstitial edema. Elia Love MD on May 07, 2017 at 1:45 Board Certified Radiologist. This report was verified electronically.
[2017-05-07 01:50] LABS: BASOPHIL % 0.3 % (0.0-2.0); EOSINOPHIL # 0.2 TH/MM3 (0-0.4); EOSINOPHIL % 2.9 % (0.0-4.0); HEMATOCRIT 27.6 % (39.0-51.0); HEMO FLAGS DIFF FINAL; LYMPHOCYTE # 1.7 TH/MM3 (1.0-4.8); MEAN CELL VOLUME 93.7 FL (80.0-100.0); MEAN CORPUSCULAR HEMOGLOBIN 31.1 PG (27.0-34.0); MEAN CORPUSCULAR HGB CONC 33.2 % (32.0-36.0); MONO % 5.3 % (0.0-8.0); NEUT % 71.5 % (16.0-70.0); PLATELET COUNT 115 TH/MM3 (150-450); RED BLOOD COUNT 2.95 MIL/MM3 (4.50-5.90); RED CELL DISTRIBUTION WIDTH 16.1 % (11.6-17.2); WHITE BLOOD COUNT 8.4 TH/MM3 (4.0-11.0)
[2017-05-07 02:16] LABS: ALT (GPT) 33 U/L (12-78); ANION GAP 9 MEQ/L (5-15); AST (GOT) 18 U/L (15-37); BICARBONATE 28.1 MEQ/L (21.0-32.0); BLOOD UREA NITROGEN 41 MG/DL (7-18); CHLORIDE 106 MEQ/L (98-107); GLOMERULAR FILTRATION RATE 6 ML/MIN (>89); POTASSIUM 4.4 MEQ/L (3.5-5.1); SODIUM (NA) 143 MEQ/L (136-145)
[2017-05-07 02:19] LABS: ALKALINE PHOSPHATASE 119 U/L (45-117); CREATINE KINASE 112 U/L (39-308); TOTAL BILIRUBIN ADULT 0.4 MG/DL (0.2-1.0)
[2017-05-07 02:35] LABS: CKMB 0.5 NG/ML (0.5-3.6)
--- NOTE | 2017-05-07 04:50 | PD ---
HPI Chief Complaint: Respiratory Distress Time Seen by Provider: 00:50 Travel History International Travel<30 days: No Contact w/Intl Traveler<30days: No Traveled to known affect area: No History of Present Illness HPI 22-year-old male with a history of renal failure secondary to [place] syndrome, presents today with complaints of shortness of breath and chest pressure. The patient reports that he was last dialyzed on Sunday and states they'll he took off a half dialysis. Who presents today with the above symptoms. He denies any fevers, chills. He does report cough with white phlegm. He is concerned that he may need emergent dialysis. Patient also has a history of PTSD and anxiety. He states he feels very anxious as well. PFSH Past Medical History Hx Anticoagulant Therapy: No Blood Disorders: No Anxiety: Yes Heart Rhythm Problems: No Cancer: No Cardiovascular Problems: Yes High Cholesterol: No Chemotherapy: No Chest Pain: No Congestive Heart Failure: No Cerebrovascular Accident: No Diabetes: No Dialysis: Yes (M/W/F) Diminished Hearing: Yes (bil[place]) Endocrine: No Gastrointestinal Disorders: No Genitourinary: Yes Hypertension: Yes Immune Disorder: No Musculoskeletal: No Neurologic: No Reproductive: No Respiratory: No Immunizations Current: Yes Radiation Therapy: No Seizures: Yes Past Surgical History Other Surgery: Yes (LT ARM AV FISTULA) Social History Alcohol Use: No Tobacco Use: Yes (2-3 cigarettes per day) Substance Use: No Allergies-Medications (Allergen,Severity, Reaction): Coded Allergies: Klonopin (Verified Allergy, Intermediate, Itching, 05/06/17) Sertraline (Verified Allergy, Intermediate, Itching, 05/06/17) Valium (Verified Allergy, Intermediate, Itching, 05/06/17) Uncoded Allergies: ANTIANXIETY (Allergy, Intermediate, Itching, 03/24/17) ANTIDEPRESSANTS (Allergy, Intermediate, Itching, 03/24/17) Reported Meds & Prescriptions Reported Meds & Active Scripts Active Fioricet (Qkurvigsso-Wdsyqfqmfogpg-Jorhnswp) 50-300-40 Mg Cap 1 Cap PO Q4H PRN Reported Imitrex (Sumatriptan Succinate) 50 Mg Tab 50 Mg PO ONCE PRN If a satisfactory response has not been obtained at 2 hours, a second dose may be administered Restoril (Temazepam) 22.5 Mg Cap 22.5 Mg PO HS PRN Sensipar (Cinacalcet) 30 Mg Tab 30 Mg PO DAILY Renvela (Sevelamer Carbonate) 800 Mg Tab 2,400 Mg PO TID Alprazolam 2 Mg Tab 2 Mg PO Q8H PRN Review of Systems Except as stated in HPI: all other systems reviewed are Neg General / Constitutional: No: Fever, Chills HENT: No: Headaches, Lightheadedness, Neck Pain Cardiovascular: Positive: Chest Pain or Discomfort (tightness no true pain.), No: Palpitations, Tachycardia Respiratory: Positive: Cough, Shortness of Breath, No: Orthopnea (white phlegm ) Gastrointestinal: No: Nausea, Vomiting, Abdominal Pain Genitourinary: No: Flank Pain Musculoskeletal: No: Weakness, Pain Neurologic: No: Weakness, Dizziness, Headache Psychiatric: Positive: Anxiety Physical Exam Narrative GENERAL: Well-nourished, well-developed patient, who appears very anxious. SKIN: Focused skin assessment warm/dry. HEAD: Normocephalic/atraumatic. EYES: No scleral icterus. No injection or drainage. NECK: Supple, trachea midline. CARDIOVASCULAR: Regular rate and rhythm without murmurs, gallops, or rubs. RESPIRATORY: Breath sounds equal bilaterally. No accessory muscle use. No Rales appreciated. GASTROINTESTINAL: Abdomen soft, non-tender, nondistended. MUSCULOSKELETAL: No cyanosis, or edema. NEUROLOGICAL: Awake and alert. Cranial nerves II through XII intact. Motor grossly within normal limits. Five out of 5 muscle strength in all muscle groups. Normal speech. PSYCHIATRIC: Extremely anxious. No delusional thought process. Data Data Last Documented VS Vital Signs Date Time Temp Pulse Resp B/P Pulse Ox O2 Delivery O2 Flow Rate FiO2 05/07/17 01:46 18 96 Nasal Cannula 2 05/06/17 22:45 98.9 98 172/110 Orders Complete Blood Count With Diff (05/07/17 00:50) Comprehensive Metabolic Panel (05/07/17 00:50) B-Type Natriuretic Peptide (05/07/17 00:50) Ckmb (Isoenzyme) Profile (05/07/17 00:50) Troponin I (05/07/17 00:50) Iv Access Insert/Monitor (05/07/17 00:50) Electrocardiogram (05/07/17 00:50) Ecg Monitoring (05/07/17 00:50) Oximetry (05/07/17 00:50) Oxygen Administration (05/07/17 00:50) Chest, Single Ap (05/07/17 00:50) Sodium Chloride 0.9% Flush (Ns Flush) (05/07/17 01:00) Lorazepam Inj (Ativan Inj) (05/07/17 01:30) CKMB (05/07/17 01:40) CKMB% (05/07/17 01:40) Labs Laboratory Tests Test 05/07/17 01:40 White Blood Count 8.4 TH/MM3 Red Blood Count 2.95 MIL/MM3 Hemoglobin 9.2 GM/DL Hematocrit 27.6 % Mean Corpuscular Volume 93.7 FL Mean Corpuscular Hemoglobin 31.1 PG Mean Corpuscular Hemoglobin 33.2 % Concent Red Cell Distribution Width 16.1 % Platelet Count 115 TH/MM3 Mean Platelet Volume 10.3 FL Neutrophils (%) (Auto) 71.5 % Lymphocytes (%) (Auto) 20.0 % Monocytes (%) (Auto) 5.3 % Eosinophils (%) (Auto) 2.9 % Basophils (%) (Auto) 0.3 % Neutrophils # (Auto) 6.0 TH/MM3 Lymphocytes # (Auto) 1.7 TH/MM3 Monocytes # (Auto) 0.4 TH/MM3 Eosinophils # (Auto) 0.2 TH/MM3 Basophils # (Auto) 0.0 TH/MM3 CBC Comment DIFF FINAL Differential Comment Sodium Level 143 MEQ/L Potassium Level 4.4 MEQ/L Chloride Level 106 MEQ/L Carbon Dioxide Level 28.1 MEQ/L Anion Gap 9 MEQ/L Blood Urea Nitrogen 41 MG/DL Creatinine 10.03 MG/DL Estimat Glomerular Filtration 6 ML/MIN Rate Random Glucose 101 MG/DL Calcium Level 8.1 MG/DL Total Bilirubin 0.4 MG/DL Aspartate Amino Transf 18 U/L (AST/SGOT) Alanine Aminotransferase 33 U/L (ALT/SGPT) Alkaline Phosphatase 119 U/L Total Creatine Kinase 112 U/L Creatine Kinase MB 0.5 NG/ML Troponin I LESS THAN 0.02 NG/ML B-Type Natriuretic Peptide 3162 PG/ML Total Protein 6.1 GM/DL Albumin 3.5 GM/DL MDM Medical Decision Making Medical Screen Exam Complete: Yes Emergency Medical Condition: Yes Differential Diagnosis Fluid overload versus CHF versus metabolic derangement. Narrative Course 22-year-old male with a history of renal failure, dialysis dependent, who presents with complaints of shortness of breath and chest tightness. The patient states he feels extremely anxious. He has a history of anxiety disorder and PTSD. He scheduled to have dialysis today. He states that Sunday he had a half a dialysis secondary to the concern that it was given give him a headache. He is hemodynamically stable. His initial blood pressure was elevated. He has been given Ativan 2 mg I V times one dose. He is much more relaxed. His O2 saturation remains at 100%. Diagnosis Primary Impression: Anxiety Additional Instructions: Go directly to dialysis Disposition: 01 DISCHARGE HOME Condition: Stable Navin Arreola MD May 07, 2017 04:50
[2017-05-07 06:00] VITALS: BP 177/109; PULSE 93; RESP 18; O2SAT 98
--- NOTE | 2017-05-07 14:35 | EKG ---
Date Performed: 05/07/2017 Time Performed: 01:34:56 PTAGE: 22 years EKG: Sinus rhythm Since previous tracing, no significant change noted NORMAL ECG PREVIOUS TRACING : 05/03/2017 20.28 DOCTOR: Arnaldo Rosario Interpretating Date/Time 05/07/2017 14:34:53
== END 2017-05-07 07:01 | disposition home or self-care (01) ==
LOC: NEPE 22:43
DX: F41.9 Anxiety disorder, unspecified (principal)
CPT/HCPCS: 71010; 80053; 82550; 82552; 83880; 84484; 85025; 93005; 96374; 99285; J2060

== ENCOUNTER 2017-05-15 11:34 | Emergency (ER) | payer MEDICARE ==
[~2017-05-15] VITALS: Ht 167.6 cm; Wt 70.0 kg
[2017-05-15 11:45] VITALS: BP 168/112; PULSE 76; RESP 18; RESP 20; TEMP 98.1; O2SAT 97
--- NOTE | 2017-05-15 11:48 | PD ---
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 Patient has history of migraine headaches but states this one has persisted over the usual. Is associated with nausea. Mild photophobia. No recent illnesses, fever, chills. Patient has no other symptoms to report. PFSH Past Medical History Hx Anticoagulant Therapy: No Blood Disorders: No Anxiety: Yes Heart Rhythm Problems: No Cancer: No Cardiovascular Problems: Yes (HTN) High Cholesterol: No Chemotherapy: No Chest Pain: No Congestive Heart Failure: No Cerebrovascular Accident: No Diabetes: No Dialysis: Yes (M/W/F) Diminished Hearing: Yes (bilat [place]) Endocrine: No Gastrointestinal Disorders: No Genitourinary: Yes Hypertension: Yes Immune Disorder: No Musculoskeletal: No Neurologic: No Reproductive: No Respiratory: No Immunizations Current: Yes Radiation Therapy: No Seizures: Yes Past Surgical History Other Surgery: Yes (LT ARM AV FISTULA) Social History Alcohol Use: No Tobacco Use: Yes (2-3 cigarettes per day) Substance Use: No Allergies-Medications (Allergen,Severity, Reaction): Coded Allergies: Klonopin (Verified Allergy, Intermediate, Itching, 05/15/17) Sertraline (Verified Allergy, Intermediate, Itching, 05/15/17) Valium (Verified Allergy, Intermediate, Itching, 05/15/17) Uncoded Allergies: ANTIANXIETY (Allergy, Intermediate, Itching, 03/24/17) ANTIDEPRESSANTS (Allergy, Intermediate, Itching, 03/24/17) Reported Meds & Prescriptions Reported Meds & Active Scripts Active Fioricet (Txmmoiizta-Ewgszvdyyvcdy-Vqnrmxss) 50-300-40 Mg Cap 1 Cap PO Q4H PRN Reported Imitrex (Sumatriptan Succinate) 50 Mg Tab 50 Mg PO ONCE PRN If a satisfactory response has not been obtained at 2 hours, a second dose may be administered Restoril (Temazepam) 22.5 Mg Cap 22.5 Mg PO HS PRN Sensipar (Cinacalcet) 30 Mg Tab 30 Mg PO DAILY Renvela (Sevelamer Carbonate) 800 Mg Tab 2,400 Mg PO TID Alprazolam 2 Mg Tab 2 Mg PO Q8H PRN Review of Systems Except as stated in HPI: all other systems reviewed are Neg Physical Exam Narrative GENERAL: Well-nourished male patient, no acute distress. SKIN: Focused skin assessment warm/dry. HEAD: Atraumatic. Normocephalic. EYES: Pupils equal and round. No scleral icterus. No injection or drainage. ENT: No nasal bleeding or discharge. Mucous membranes pink and moist. NECK: Trachea midline. No JVD. CARDIOVASCULAR: Regular rate and rhythm. No murmur appreciated. RESPIRATORY: No accessory muscle use. Clear to auscultation. Breath sounds equal bilaterally. GASTROINTESTINAL: Abdomen soft, non-tender, nondistended. Hepatic and splenic margins not palpable. MUSCULOSKELETAL: No obvious deformities. No clubbing. No cyanosis. No edema. Left upper extremity AV fistula. Palpable thrill; audible bruit NEUROLOGICAL: Awake and alert. No obvious cranial nerve deficits. Motor grossly within normal limits. Normal speech. PSYCHIATRIC: Appropriate mood and affect; insight and judgment normal. Data Data Last Documented VS Vital Signs Date Time Temp Pulse Resp B/P Pulse Ox O2 Delivery O2 Flow Rate FiO2 05/15/17 15:04 85 16 157/109 98 Room Air 05/15/17 11:45 98.1 Orders Iv Access Insert/Monitor (05/15/17 11:52) Complete Blood Count With Diff (05/15/17 11:52) Basic Metabolic Panel (Bmp) (05/15/17 11:52) Sumatriptan Inj (Imitrex Inj) (05/15/17 12:00) Clonidine (Catapres) (05/15/17 12:00) Ondansetron Inj (Zofran Inj) (05/15/17 12:30) Ct Brain W/O Iv Contrast(Rout) (05/15/17 ) Coag Profile (05/15/17 13:39) Electrocardiogram (05/15/17 14:15) Labs Laboratory Tests Test 05/15/17 05/15/17 12:25 13:57 White Blood Count 5.5 TH/MM3 Red Blood Count 3.24 MIL/MM3 Hemoglobin 9.9 GM/DL Hematocrit 29.8 % Mean Corpuscular Volume 92.1 FL Mean Corpuscular Hemoglobin 30.6 PG Mean Corpuscular Hemoglobin 33.2 % Concent Red Cell Distribution Width 15.8 % Platelet Count 135 TH/MM3 Mean Platelet Volume 9.6 FL Neutrophils (%) (Auto) 73.7 % Lymphocytes (%) (Auto) 15.5 % Monocytes (%) (Auto) 8.0 % Eosinophils (%) (Auto) 2.3 % Basophils (%) (Auto) 0.5 % Neutrophils # (Auto) 4.1 TH/MM3 Lymphocytes # (Auto) 0.9 TH/MM3 Monocytes # (Auto) 0.4 TH/MM3 Eosinophils # (Auto) 0.1 TH/MM3 Basophils # (Auto) 0.0 TH/MM3 CBC Comment DIFF FINAL Differential Comment Sodium Level 141 MEQ/L Potassium Level 4.7 MEQ/L Chloride Level 105 MEQ/L Carbon Dioxide Level 26.3 MEQ/L Anion Gap 10 MEQ/L Blood Urea Nitrogen 20 MG/DL Creatinine 7.71 MG/DL Estimat Glomerular Filtration 9 ML/MIN Rate Random Glucose 89 MG/DL Calcium Level 8.9 MG/DL Prothrombin Time 11.5 SEC Prothromb Time International 1.0 RATIO Ratio Activated Partial 28.7 SEC Thromboplast Time MDM Medical Decision Making Medical Screen Exam Complete: Yes Emergency Medical Condition: Yes Medical Record Reviewed: Yes Differential Diagnosis Migraine with and without aura versus tension headache versus cluster headache versus electrolyte abnormality Narrative Course 22-year-old male presents to emergency department for evaluation. Patient appears without distress. Neuro exam is nonfocal. Laboratory Tests Test 05/15/17 05/15/17 12:25 13:57 White Blood Count 5.5 TH/MM3 Red Blood Count 3.24 MIL/MM3 Hemoglobin 9.9 GM/DL Hematocrit 29.8 % Mean Corpuscular Volume 92.1 FL Mean Corpuscular Hemoglobin 30.6 PG Mean Corpuscular Hemoglobin 33.2 % Concent Red Cell Distribution Width 15.8 % Platelet Count 135 TH/MM3 Mean Platelet Volume 9.6 FL Neutrophils (%) (Auto) 73.7 % Lymphocytes (%) (Auto) 15.5 % Monocytes (%) (Auto) 8.0 % Eosinophils (%) (Auto) 2.3 % Basophils (%) (Auto) 0.5 % Neutrophils # (Auto) 4.1 TH/MM3 Lymphocytes # (Auto) 0.9 TH/MM3 Monocytes # (Auto) 0.4 TH/MM3 Eosinophils # (Auto) 0.1 TH/MM3 Basophils # (Auto) 0.0 TH/MM3 CBC Comment DIFF FINAL Differential Comment Sodium Level 141 MEQ/L Potassium Level 4.7 MEQ/L Chloride Level 105 MEQ/L Carbon Dioxide Level 26.3 MEQ/L Anion Gap 10 MEQ/L Blood Urea Nitrogen 20 MG/DL Creatinine 7.71 MG/DL Estimat Glomerular Filtration 9 ML/MIN Rate Random Glucose 89 MG/DL Calcium Level 8.9 MG/DL Prothrombin Time 11.5 SEC Prothromb Time International 1.0 RATIO Ratio Activated Partial 28.7 SEC Thromboplast Time On reassessment, patient is restful in the bed. He'll be discharged to follow- up with her primary care provider. He agrees to return immediately with any acute worsening symptoms Diagnosis Primary Impression: Migraine Qualified Code: G43.909 - Migraine without status migrainosus, not intractable , unspecified migraine type Additional Impressions: ESRD (end stage renal disease) Hypertension Qualified Code: I15.1 - Hypertension secondary to other renal disorders Referrals: Neurologist Primary Care Physician Patient Instructions: General Instructions, Migraine Headache (ED) Additional Instructions: Continue medication as already prescribed Follow-up to primary care provider Return immediately with any acute worsening of symptoms Med/Other Pt SpecificInfo: No Change to Meds Disposition: 01 DISCHARGE HOME Condition: Stable Sil Mckeon May 15, 2017 11:48
[2017-05-15] MEDS ORDERED: SUMAtriptan INJ 6 MG/0.5 ML VIAL SQ ONE (12:00)
[2017-05-15] MEDS ORDERED: cloNIDine HCL 0.1 MG TAB PO ONE (12:00)
[2017-05-15 12:24] VITALS: BP 157/106; PULSE 78; RESP 16; O2SAT 99
[2017-05-15] MEDS ORDERED: ONDANSETRON HCL 4 MG/2 ML VIAL IV PUSH ONE (12:30)
[2017-05-15 12:42] LABS: AUTOMATED NEUTROPHIL # 4.1 TH/MM3 (1.8-7.7); BASOPHIL % 0.5 % (0.0-2.0); EOSINOPHIL # 0.1 TH/MM3 (0-0.4); EOSINOPHIL % 2.3 % (0.0-4.0); HEMATOCRIT 29.8 % (39.0-51.0); HEMO FLAGS DIFF FINAL; LYMPH % 15.5 % (9.0-44.0); LYMPHOCYTE # 0.9 TH/MM3 (1.0-4.8); MEAN CELL VOLUME 92.1 FL (80.0-100.0); MEAN CORPUSCULAR HEMOGLOBIN 30.6 PG (27.0-34.0); MEAN CORPUSCULAR HGB CONC 33.2 % (32.0-36.0); NEUT % 73.7 % (16.0-70.0); PLATELET COUNT 135 TH/MM3 (150-450); RED BLOOD COUNT 3.24 MIL/MM3 (4.50-5.90); RED CELL DISTRIBUTION WIDTH 15.8 % (11.6-17.2); WHITE BLOOD COUNT 5.5 TH/MM3 (4.0-11.0)
[2017-05-15 12:58] LABS: BICARBONATE 26.3 MEQ/L (21.0-32.0); POTASSIUM 4.7 MEQ/L (3.5-5.1)
--- NOTE | 2017-05-15 13:46 | RADRPT ---
EXAM DATE/TIME: 05/15/2017 13:30 [facility] COMPARISON: No previous studies available for comparison. INDICATIONS : Nausea vomiting, headache starting yesterday,syncopa episode today. RADIATION DOSE: 36.05 CTDIvol (mGy) MEDICAL HISTORY : Seizures. Hypertension. Dialysis SURGICAL HISTORY : left arm av fistula ENCOUNTER: Initial ACUITY: 1 day PAIN SCALE: 10/10 LOCATION: cranial TECHNIQUE: Multiple contiguous axial images were obtained of the head. Using automated exposure control and adj ustment of the mA and/or kV according to patient size, radiation dose was kept as low as reasonably a chievable to obtain optimal diagnostic quality images. DICOM format image data is available electro nically for review and comparison. FINDINGS: There is no evidence for intracranial hemorrhage, mass effect, mass lesions, edema, or extra-axial fl uid collections. The visualized bony structures appear intact. The ventricles are normal size for t he patient's age. There are no signs of acute infarction for technique. CONCLUSION: Unremarkable study. Jamil Clancy MD on May 15, 2017 at 13:42 Board Certified Radiologist. This report was verified electronically.
[2017-05-15 13:48] VITALS: BP_SYST 169; BP_DIAS 11; BP_DIAS 111; PULSE 78; RESP 16; O2SAT 94
[2017-05-15 14:18] LABS: APTT (PATIENT) 28.7 SEC (24.3-30.1); PROTHROMBIN TIME - PATIENT 11.5 SEC (9.8-11.6)
[2017-05-15 15:04] VITALS: BP 157/109; PULSE 85; RESP 16; O2SAT 98
--- NOTE | 2017-05-15 22:11 | EKG ---
Date Performed: 05/15/2017 Time Performed: 14:15:15 PTAGE: 22 years EKG: Sinus rhythm POSSIBLE RIGHT VENTRICULAR CONDUCTION DELAY BORDERLINE ECG PREVIOUS TRACING : 05/07/2017 01.34 Compared to prior tracing no significant change DOCTOR: Romulo Holland Interpretating Date/Time 05/15/2017 22:10:59
== END 2017-05-15 15:30 | disposition home or self-care (01) ==
LOC: NEPC 11:34
DX: G43.909 Migraine, unspecified, not intractable, without status migrainosus (principal); I12.0 Hypertensive chronic kidney disease with stage 5 chronic kidney disease or end stage renal disease; N18.6 End stage renal disease
CPT/HCPCS: 70450; 80048; 85025; 85610; 85730; 93005; 96372; 96374; 99285; J2405; J3030